=== PATIENT | female | born 1960 | race Caucasian/White ===

== ENCOUNTER 2022-06-10 11:11 | Outpatient (REF) | payer OTHER, SELFPAY ==
--- NOTE | ~2022-06-10 | MM_ITS ---
EXAMINATION: MM SCREENING DIGITAL BREAST TOMOSYNTHESIS, BILATERAL CLINICAL INFORMATION: Screening. Asymptomatic. The lifetime risk of breast cancer based on the Tyrer-Cuzick Model is 8.5%. COMPARISON: Mammography: December 21, 2017 and studies dating back to November 07, 2012 TECHNIQUE: Digital breast tomosynthesis is performed in both the craniocaudal and mediolateral oblique views along with computer-aided detection (CAD). Synthesized 2D images are generated from the tomosynthesis. FINDINGS: There are scattered areas of fibroglandular density (ACR BI-RADS breast composition Category b). There are no significant masses, abnormal calcifications, or other abnormalities. MM/MM tomosynthesis screening BI IMPRESSION: There are no significant changes from prior study. ASSESSMENT: BI-RADS 1: Negative RECOMMENDATION: Routine annual mammography screening. This patient's information was entered into a reminder system with a target due date for their next mammogram.
== END 2022-06-10 11:12 | disposition home or self-care (01) ==
LOC: HO.MAMMO 11:11
PROVIDERS: Visit Provider Internal Medicine Geriatric Medicine
DX: Z12.31 Encounter for screening mammogram for malignant neoplasm of breast (principal)
CPT/HCPCS: 77063; 77067

== ENCOUNTER 2024-03-03 10:41 | Outpatient (REF) | payer OTHER, SELFPAY ==
[2024-03-03 14:21] LABS: Alanine Aminotransferase 14 U/L (0-31); Albumin Level 4.1 g/dL (3.5-5.0); Alkaline Phosphatase 86 U/L (39-117); Anion Gap 11 (12-20); Aspartate Amino Transferase 13 U/L (5-31); Bilirubin Direct 0.2 mg/dL (0.0-0.5); Bilirubin Total 0.3 mg/dL (0.0-1.0); Blood Urea Nitrogen 19 mg/dL (9-16); Calcium 9.8 mg/dL (8.4-10.2); Carbon Dioxide 29 mmol/L (22-29); Chloride 106 mmol/L (96-108); Cholesterol 138 mg/dL (<200); Estimated Glomerular Filt Rate > 60; Glucose Random 114 mg/dL (60-115); HDL Cholesterol 54 mg/dL (>40); LDL Cholesterol Calculated 70 mg/dL (<100); Potassium 4.4 mmol/L (3.3-5.1); Sodium 142 mmol/L (135-145); Total Protein 7.9 g/dL (6.5-8.0); Triglycerides 71 mg/dL (<150)
[2024-03-03 14:40] LABS: Creatinine Urine 170.28 mg/dL; Microalbum/Creatinine Ratio Ur 21.7 ug/mg cr (<30)
== END 2024-03-03 10:42 | disposition home or self-care (01) ==
LOC: HO.HHCL 10:41
PROVIDERS: Visit Provider Internal Medicine Geriatric Medicine
DX: E11.9 Type 2 diabetes mellitus without complications (principal); Z79.4 Long term (current) use of insulin
CPT/HCPCS: 36415; 80048; 80061; 80076; 82043; 82570

== ENCOUNTER 2024-04-04 10:09 | Outpatient (REF) | payer OTHER, SELFPAY | END 2024-04-04 10:10 | disposition home or self-care (01) | LOC: HO.MAMMO 10:09 | PROVIDERS: PCP Internal Medicine Geriatric Medicine; Visit Provider Internal Medicine Geriatric Medicine | DX: Z12.31 Encounter for screening mammogram for malignant neoplasm of breast (principal) | CPT/HCPCS: 77063; 77067 ==

== ENCOUNTER → 2024-04-04 10:15 | Outpatient (BNV) | payer OTHER, SELFPAY | PROVIDERS: PCP Internal Medicine Geriatric Medicine; Visit Provider Radiology Diagnostic Radiology | DX: Z12.31 Encounter for screening mammogram for malignant neoplasm of breast (principal) | CPT/HCPCS: 77063; 77067 ==

== ENCOUNTER 2024-07-26 17:26 | Outpatient (REF) | payer OTHER, SELFPAY ==
[2024-07-28 16:58] LABS: HPV mRNA E6/E7 Not Detected (Not Detected)
== END 2024-07-26 17:27 | disposition home or self-care (01) ==
LOC: HO.HHCLNP 17:26
PROVIDERS: Visit Provider Advanced Practice Midwife
DX: Z12.4 Encounter for screening for malignant neoplasm of cervix (principal)
CPT/HCPCS: 36415; 87624; 88175

== ENCOUNTER 2024-08-17 14:18 | Outpatient (REF) | payer OTHER, SELFPAY ==
--- NOTE | ~2024-08-17 | US_ITS ---
EXAMINATION: US PELVIS CLINICAL INFORMATION: Right lower quadrant pain. Postmenopausal. COMPARISON: None available. TECHNIQUE: Ultrasound of the pelvis is performed using both transabdominal and transvaginal transducers along with Doppler. Transvaginal imaging is performed due to inadequate visualization transabdominally. FINDINGS: Uterus: The uterus is anteverted and anteflexed and measures 5.4 x 2.4 x 4 cm. The double wall endometrial thickness is 3 mm. The uterus is smooth in contour and has normal myometrial echogenicity. No visible fibroid. Adnexa: Neither the right of the left ovary is visualized. No adnexal abnormality. Cul-de-sac: No fluid in cul-de-sac. US/US pelvic and transvaginal IMPRESSION: Normal ultrasound of pelvis. Electronically signed by: Poncho Ellis MD 08/17/2024 04:56 PM EDT
== END 2024-08-17 14:19 | disposition home or self-care (01) ==
LOC: HO.US 14:18
PROVIDERS: PCP Internal Medicine Geriatric Medicine; Visit Provider Advanced Practice Midwife
DX: R10.31 Right lower quadrant pain (principal)
CPT/HCPCS: 76830; 76856

== ENCOUNTER 2025-08-03 08:31 | Outpatient (REF) | payer OTHER, SELFPAY ==
--- OUTSIDE RECORDS SUMMARY | 2025-08-01 11:00 | XMS_ITS | Encounter Summary ---
Author Organization [employer] Address [address] [place] [address] Care Team Providers Care Bridge Crane Operator Name Role Phone Name, Zeb JOSHUA Primary Care Provider [phone] Jenna Webber PharmD Unavailable [phone] Reason for Referral * Imaging (Routine) - Authorized Specialty Diagnoses / Procedures Referred By Contac t Referred To Contact Radiology Diagnoses Family history of breast cancer Breast cancer screening by mammogram Procedures BI Mammogram Screening Tomosynthesis Bilateral Katt Donis CNM [address] [place] [address] Phone: tel: fax: [address] Phone: tel: fax: Referral ID Status Reason Start Date Expiration Date V isits Requested Visits Authorized [id number] Authorized 08/01/2025 08/01/2026 1 1 * Imaging (Routine) - Authorized Specialty Diagnoses / Procedures Referred By Contac t Referred To Contact Radiology Diagnoses Menopausal and postmenopausal disorder Procedures BD DEXA Axial Katt Donis CNM [address] [place] [address] Phone: tel: fax: [address] Phone: tel: fax: Referral ID Status Reason Start Date Expiration Date V isits Requested Visits Authorized [id number] Authorized 08/01/2025 08/01/2026 1 1 Encounter Details Date Type Department Care Team (Latest Contact Info) Description 08/01/2025 11:00 AM EDT Procedure Visit [facility] [address] [place] [address] Katt Donis CNM [address], [place] [id number] Menopausal and postmenopausal disorder (Primary Dx); Visit for pelvic exam; Family history of breast cancer; Breast cancer screening by mammogram Social History Tobacco Use Types Packs/Day Years Used Date Smoking Tobacco: Never Smokeless Tobacco: Never Alcohol Use Standard Drinks/Week Comments Never 0 (1 standard drink = 0.6 oz pur e alcohol) Depression Answer Date Recorded Patient Health Questionnaire-9 Score 4 06/06/2025 Patient Health Questionnaire-9 Score 4 06/06/2025 Last PHQ-9: Questionnaire Data Not on file 0 06/06/2025 Housing Stability Answer Date Recorded What is your housing situation today? I have fariha sebastian 06/06/[address] you li ve. Do you have problems with any of the following? None of the above 06/06/2025 Food Insecurity Answer Date Recorded Within the past 12 months, y ou worried that your food would run out before you got money to buy more: Sometimes True 2024 Within the past 12 months,th e food you bought just didn't last and you didn't have enough money to get more: Sometimes True 06/06/2025 Transportation Answer Date Recorded In the past 12 months, has l ack of transportation kept you from medical appts, meetings, work or from getting things needed for daily living? No 06/06/2025 Utilities Answer Date Recorded In the past 12 months, has t he electric, gas, oil or water company threatened to shut off services in your home? Yes 06/06/2025 Depression Answer Date Recorded Patient Health Questionnaire-2 Score 1 06/06/2025 Internet Access Answer Date Recorded Internet Access Q1 Yes 06/06/2025 Internet Access Q2 Not on file 06/06/2025 Comments No Sex and Gender Information Value Date Recorded Sex Assigned at Female 09/21/2022 10:17 AM EDT Legal Sex Female 10:17 AM EDT Gender Identity Female 09/21/2022 10:17 AM EDT Sexual Orientation Choose not to disclose 2021 10:17 AM EDT documented as of this encounter Last Filed Vital Signs Vital Sign Reading Time Taken Comments Blood Pressure 110/64 08/01/2025 10:56 AM EDT Pulse 108 08/01/2025 10:56 AM EDT Temperature 36.1 C (97 F) 08/01/2025 10:56 AM EDT Respiratory Rate 20 08/01/2025 10:56 AM EDT Oxygen Saturation - - Inhaled Oxygen Concentration - - Weight 58.7 kg (129 lb 6 oz) 08/01/2025 10:56 AM EDT Height 162.6 cm (5' 4 ) 08/01/2025 10:56 AM EDT Body Mass Index 22.21 08/01/2025 10:56 AM EDT documented in this encounter Progress Notes * Katt Donis, NICK - 08/01/2025 11:00 AM EDT Subjective Patient ID: Triny Monsivais is a 65 y.o. female who presents for [facility] visit. Here with daughter and great grand-daughter who remained for intake, but left for exam with Ivisolena. Pap NIL/HPV neg 07/2024. Pap NIL/HPV neg 07/2019. Mammogram BIRADS 1, cat a 03/2024. Not sexually active at last visit with me, no current partner. Lives with daughter, feels safe at home (confirmed this with daughter not present). No personal fracture, no parental hip fracture. Menopausal around 47, no bleeding since. No vaginal/urinary symptoms. Not using vaginal estrogen, feels well without it. No worrisome findings on pelvic ultrasound 07/2024, ovaries not seen. Due for BMD. Would like breast and pelvic exam today. Review of Systems Genitourinary: Negative for dyspareunia, dysuria, frequency, genital sores, hematuria, menstrual problem, pelvic pain, urgency, vaginal bleeding, vaginal discharge and vaginal pain. No abnormal pap, no abnormal bleeding, no breast pain, no breast mass, no nipple discharge Objective BP 110/64 (BP Location: Left arm, Patient Position: Sitting, BP Cuff Size: Adult) Pulse 108 Temp 97 ??F (36.1 ??C) (Oral) Resp 20 Ht 5' 4 (1.626 m) Wt 129 lb 6 oz (58.7 kg) BMI 22.21 kg/m?? 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 Constitutional: Appearance: Normal appearance. Chest: Breasts: Right: Normal. No swelling, bleeding, inverted nipple, mass, nipple discharge, skin change or tenderness. Left: Normal. No swelling, bleeding, inverted nipple, mass, nipple discharge, skin change or tenderness. Genitourinary: General: Normal vulva. Labia: Right: No rash, tenderness, lesion or injury. Left: No rash, tenderness, lesion or injury. Vagina: Normal. No signs of injury and foreign body. No vaginal discharge, erythema, tenderness, bleeding or lesions. Cervix: No cervical motion tenderness, discharge, friability, lesion, erythema, cervical bleeding or eversion. Uterus: Normal. Not enlarged and not tender. Adnexa: Right adnexa normal and left adnexa normal. Right: No mass, tenderness or fullness. Left: No mass, tenderness or fullness. Comments: Ovaries non palpable bilaterally. Poor tone with Kegels, no prolapse with Valsalva Lymphadenopathy: Upper Body: Right upper body: No supraclavicular or axillary adenopathy. Left upper body: No supraclavicular or axillary adenopathy. Neurological: Mental Status: She is alert. Psychiatric: Mood and Affect: Mood normal. Behavior: Behavior normal. Assessment/Plan Diagnoses and all orders for this visit: Menopausal and postmenopausal disorder - BD DEXA Axial; Future Mammogram and BMD ordered. Visit for pelvic exam Pap/HPV 07/2029. May discuss discontinuing screening if normal/HPV neg. Report bleeding. Report fractures. Mammogram and BMD ordered. Family history of breast cancer - BI Mammogram Screening Tomosynthesis Bilateral; Future Sister diagnosed at 45, still living. Urged to talk with her to see if genetic testing done. Let meor PCP know what she finds out and we can refer Triny for genetics if indicated. Mammogram ordered. Breast cancer screening by mammogram - BI Mammogram Screening Tomosynthesis Bilateral; Future documented in this encounter Plan of Treatment Upcoming Encounters Date Type Department Care Team (Late st Contact Info) Description 08/20/2025 10:15 AM EDT Office Visit [facility] [address] [place] [address] Name, MD Zeb [address] [place] [address] 08/30/2025 11:00 AM EDT Medication Management [facility] [address] [place] [address] Jenna Webber PharmD [address] [place] [address] 01/10/2026 1:00 PM EST Office Visit [facility] [address] [place] [address] Doyle, Rebekah, OD [address] [place] [address] Scheduled Orders Name Type Priority Associated Diagnoses Orde r Schedule BD DEXA Axial Imaging Routine Menopausal and postmenopausal disorder Expected: 08/01/2025, Expires: 08/01/2026 BI Mammogram Screening Tomosynthesis Bilateral Imaging Routine Family history of breast cancer Breast cancer screening by mammogram Expected: 08/01/2025, Expires: 10/01/2026 documented as of this encounter Goals Goal Patient Goal Type Associated Problems Recent Progress Patient-Stated? Author Hemoglobin A1c < 7 Result Component 8.7( 10:46 AM EDT) No PuiaNnamdiJenna, PharmD Record your blood sugar as directed Result Component No Nnamdi Webberyssa, PharmD Note: Use CGM, ensuring sensor is scanned at least once every 8 hours to capture 24H data. Check BG manually, as directed. documented as of this encounter Visit Diagnoses Diagnosis Menopausal and postmenopausal disorder- Primary Unspecified menopausal and postmenopausal disorder Visit for pelvic exam Family history of breast cancer Family history of malignant neoplasm of breast Breast cancer screening by mammogram documented in this encounter Additional Health Concerns Assessment Noted Time PHQ-9 Depression Total Score: 4 06/06/20 25 11:34 AM EDT documented as of this encounter Care Teams Bridge Crane Operator Relationship Specialty Start Date End Date Name, MD Zeb [address] [place] [address] PCP - General Family Medicine 02/12/16 Jenna Webber PharmD [address] [place] [address] Pharmacist Internal Medicine 01/22/23 documented as of this encounter
--- OUTSIDE RECORDS SUMMARY | 2025-08-03 09:02 | XMS_ITS | Clinical Summary ---
Author Organization [employer] Address [address] [place] [address] Care Team Providers Care Envelope Patternmaker Name Role Phone Name, Zeb JOSHUA Primary Care Provider [phone] Jenna Webber PharmD Unavailable [phone] Allergies Active Allergy Reactions Criticality Noted Date Comments Bacitracin Hives 11/10/2022 Naproxen Itching 07/10/2010 The patient has used motrin in the past with no side effects Nitrofurantoin Rash Low 06/25/2021 Penicillins Hives 11/10/2022 Medications * This document contains information received from the source organization and may not represent a complete record from that organization. PARoxetine (Paxil) 40 MG tablet Take 1 tablet by mouth in the morning. Active albuterol 108 (90 Base) MCG/ACT inhaler Inhale 2 puffs every 4 (four) hours if needed. 12/07/19 18 Active risperiDONE (RisperDAL) 1 MG tablet Take 1.5 mg by mouth 2 times daily. 09/03/20 22 Active zolpidem (Ambien) 10 MG tablet Take 10 mg by mouth at bedtime. 10/09/20 22 Active LORazepam (Ativan) 0.5 MG tablet Take 1 tablet by mouth every morning & 2 tablets every evening 01/07/20 23 Active glucagon (Baqsimi Two Pack) 3 MG/DOSE nasal powderIndicatio ns:Type 2 diabetes mellitus without complication, with long-term current use of insulin ([facility]) USE 1 SPRAY (3MG) IN ONE NOSTRIL FOR A PATIENT WITH SEVERE HYPOGLYCEMIA WHO IS NOT RESPONSIVE AND UNABLE SELF-TREAT WITH GLUCOSE. AFTERWARDS TURN ON SIDE. MAY REPEAT IN 15MINUTES IF PATIENT DOES NOT RESPOND. 2 each 1 09/01/20 24 Active PARoxetine (Paxil) 10 MG tablet Take 10 mg by mouth in the morning. Take in addition to 40 mg tab (TDD = 50 MG) 10/31/20 24 Active atorvastatin (Lipitor) 20 MG tabletIndicatio ns:High cholesterol Take 1 tablet (20 mg) by mouth in the morning. 90 tablet 3 01/31/20 25 Active glucose 4 g chewable tabletIndicatio ns:Type 2 diabetes mellitus without complication, with long-term current use of insulin (CMS/[facility]) Chew 4 tablets (16 g) if needed for low blood sugar. (BG < 70 MG/DL). Recheck BG after 15 mins and repeat treatment PRN. 20 tablet 5 01/31/20 25 026 Active insulin pen needle (BD Pen Needle Elvia 2nd Gen) 32G x 4 mm miscIndications :Type 2 diabetes mellitus without complication, with long-term current use of insulin (CMS/[facility]) Use to inject insulin 1 time daily. 100 each 01/31/20 25 Active metFORMIN (Glucophage) 1000 MG tablet Take 1 tablet (1,000 mg) by mouth with breakfast and with evening meal. 180 tablet 3 01/31/20 25 Active OneTouch Delica Lancets 33G miscIndications :Type 2 diabetes mellitus without complication, with long-term current use of insulin (CMS/HCC) USE TO TEST BLOOD SUGAR TWICE A DAY 100 each 01/31/20 25 Active acetaminophen (Tylenol) 325 MG tablet Take 325 mg by mouth every 8 (eight) hours if needed for moderate pain or fever. 02/14/20 25 Active Continuous Glucose Enterprise Data [employer] (FreeStyle Amanda 3 Dyer) deviceIndicatio ns:Type 2 diabetes mellitus with hyperglycemia, unspecified whether roasterman insulin use (CMS/HCC) 1 each Once per day. Use as directed for CGM 1 each 04/06/20 25 Active Continuous Glucose Sensor (FreeStyle Amanda 3 Plus Sensor) miscIndications :Type 2 diabetes mellitus with hyperglycemia, unspecified whether roasterman insulin use (CMS/HCC) Apply 1 every 15 days as directed for CGM 2 each 04/06/20 25 Active glucose blood (FreeStyle Precision Sha Test) test stripIndication s:Type 2 diabetes mellitus with hyperglycemia, unspecified whether roasterman insulin use (CMS/HCC) USE TO TEST BLOOD SUGAR TWICE DAILY 50 strip 04/06/20 25 Active ibuprofen 400 MG tablet Take 1 tablet (400 mg) by mouth every 6 (six) hours if needed for moderate pain. 30 tablet 1 06/07/20 25 026 Active insulin glargine (Toujeo SoloStar) 300 UNIT/ML injectionIndica tions:Type 2 diabetes mellitus without complication, with long-term current use of insulin (CMS/[facility]) Inject 32 Units under the skin at bedtime. 4.5 mL 5 06/08/20 25 Active Dulaglutide (Trulicity) 1.5 MG/0.5ML solution auto-injectorIn dications:Type 2 diabetes mellitus without complication, with long-term current use of insulin (CMS/[facility]) Inject 1.5 mg under the skin 1 (one) time per week. 2 mL 08/02/20 25 Active Semaglutide,0.2 5 or 0.5MG/DOS, (Ozempic, 0.25 or 0.5 MG/DOSE,) 2 MG/3ML solution pen-injectorInd ications:Type 2 diabetes mellitus with hyperglycemia, unspecified whether roasterman insulin use (CMS/[facility]) Inject 0.5 mg under the skin 1 (one) time per week. 3 mL 01/31/20 25 025 Discontin ued(Alter abdoulaye therapy) azithromycin (Zithromax) 250 MG tablet Take 2 tablets PO today then 1 tablet PO daily x 4 days 6 tablet 06/07/20 025 Discontin ued(Thera py completed ) Active Problems Problem Noted Date Diagnosed Date Urinary incontinence 05/20/2022 Asthma 06/23/2016 Type 2 diabetes mellitus wit hout complication, with long-term current use of insulin 02/12/2016 Assessment & Plan (06/06/2025 1:32 PM EDT): -patient declines hypoglycemic events in past 2 weeks -A1c 8.7% in clinic today which is improved from 9.6% in March -patient is scheduled with [facility] Pharmacist Jenna on 06/08 @10: 30 am. Will defer insulin titration for now given that patient has not experienced labile readings since returning to [facility]. She is encouraged to keep that appointment -reviewed symptoms of hyper/hypoglycemia and advised to report Knee pain 02/12/2016 Schizophrenia 02/12/2016 Resolved Problems Problem Noted Date Diagnosed Date Resolved Date Acute bacterial sinusitis 03/06/2025 Assessment & Plan (03/06/2025 10:27 AM EDT): Likely from recent flu infection Pt with penicillin allergy -rx azithromycin -supportive care -ER precautions discussed. -seek medical attention for worsening symptoms. Influenza B 02/13/2025 06/07/2025 Assessment & Plan (02/13/2025 9:24 AM EDT): Influenza B positive. Strep and COVID negative. No evidence of respiratory distress. Symptoms mild. No evidence of dehydration. -On the border of the window of treatment for Tamiflu, will prescribe given ot has upcoming surgery and sick contacts. -Encouraged wearing masks around the house. -Start oseltamivir (Tamiflu) 75 MG, take 1 capsule (75 mg) by mouth 2 times daily for 5 days. -Supportive care advised. -Isolation recommendations discussed. Encounters Date Type Department Care Team Description 08/02/2025 Travel 08/01/2025 11:00 AM EDT Procedure Visit [facility] [address] [place] [address] Katt Donis CNM Menopausal and postmenopausal disorder (Primary Dx); Visit for pelvic exam; Family history of breast cancer; Breast cancer screening by mammogram 08/01/2025 Travel 07/31/2025 Telephone [facility] [address] [place], [place] [phone] Katt Donis CNM CHART PREP 07/25/2025 Telephone [facility] [address] [place], [place] [phone] Name, MD Zeb Durable Medical Equipment 07/09/2025 1:00 PM EDT Office Visit [facility] [address] [place], [place] [phone] Doyle, Rebekah, OD Diabetes type 2, no ocular involvement (CMS/HCC) (Primary Dx); Adult vitelliform macular dystrophy; Lattice degeneration of peripheral retina, left; Pseudophakia of both eyes; Presbyopia of both eyes 07/09/2025 Travel 06/08/2025 Travel 06/07/2025 1:20 PM EDT Office Visit [facility] [address] [place] [phone] Monica Barba DO Strep throat 06/07/2025 Travel 06/06/2025 10:30 AM EDT Office Visit [address] [address] Veronica Haro NP History of elevated blood pressure while in hospital (Primary Dx); Type 2 diabetes mellitus without complication, with long-term current use of insulin ([facility]) 06/06/2025 Travel 06/04/[address] [address] Siena Schulte MA CHARTPREP 06/01/[address] [address] Erich Crain MA chart prep 06/01/[address] [address] Vahid, MD Zeb appt R/S Office visit/ER F/U 05/31/[address] [phone] Tricia Stern FNP Chart Prep 05/23/[address] [address] Jenna Webber, PharmD 05/09/2025 Travel from Last 3 Months Immunizations Immunization Administration Dates Next Due Influenza injectable quadriv alent IIV4 with preservative 08/08/2019,08/19/2018,09/07/2017 Influenza, IIV3, injectable 08/16/2015,0 08/11/2013,10/28/2012,10/24,10/29/2008 Novel [id number], preservative-free 02/18/2010 Pneumococcal Conjugate PCV 20 02/24/2023 Pneumococcal Polysaccharide PPSV23 02/14/2013 RSV Bivalent 11/19/2023 Tdap 02/24/2023,02/14/2013 Zoster, Recombinant 11/19/2023,02/24/2023 Family History Medical History Relation Name Comments Colon cancer Brother Colon cancer Mother Breast cancer Sister Relation Name Status Comments Brother Mother Sister Social History Tobacco Use Types Packs/Day Years Used Date Smoking Tobacco: Never Smokeless Tobacco: Never Tobacco Cessation:Counseling Given: Not Answered Alcohol Use Standard Drinks/Week Comments Never 0 (1 standard drink = 0.6 oz pur e alcohol) Depression Answer Date Recorded Patient Health Questionnaire-9 Score 4 06/06/2025 Patient Health Questionnaire-9 Score 4 06/06/2025 Last PHQ-9: Questionnaire Data Not on file 0 06/06/2025 Housing Stability Answer Date Recorded What is your housing situation today? I have fariha romulo 06/06/[address] you li [...] not to disclose 2021 10:17 AM EDT Last Filed Vital Signs Vital Sign Reading Time Taken Comments Blood Pressure 110/62 08/02/2025 12:17 PM EDT Pulse 108 08/01/2025 10:56 AM EDT Temperature 36.1 C (97 F) 08/01/2025 10:56 AM EDT Respiratory Rate 20 08/01/2025 10:56 AM EDT Oxygen Saturation 97% 06/07/2025 12:58 PM EDT Inhaled Oxygen Concentration - - Weight 58.7 kg (129 lb 6 oz) 08/01/2025 10:56 AM EDT Height 162.6 cm (5' 4 ) 08/01/2025 10:56 AM EDT Body Mass Index 22.21 08/01/2025 10:56 AM EDT Plan of Treatment Upcoming Encounters Date Type Department Care Team (Late st Contact Info) Description 08/20/2025 10:15 AM EDT Office Visit [facility] [address] [place] [address] Name, MD Zeb [address] [place] [address] 08/30/2025 11:00 AM EDT Medication Management [facility] [address] [place] [address] Puia, Jenna, PharmD [address] [place] [address] 01/10/2026 1:00 PM EST Office Visit [facility] [address] [place] [address] Doyle, Rebekah, OD [address] [place] [address] Health Maintenance Due Date Last Done Comments CT Colonography 1960 FIT DNA/Cologuard 1960 FIT 1960 FOBT 1960 Sigmoidoscopy 1960 Hepatitis C Screening 01/25/1978 Diabetes: Urine Protein Screening 03/03/2025 03/03/2024, 10/07/2022, 04/07/2021 Lipid Panel 03/03/2025 03/03/2024, 09/22, 04/07/2021 Diabetes: Foot Exam 03/17/2025 03/17/2024, 03/17/2024, 03/17/2024 COVID-19 Vaccine (1 - 2024-25 season) 2025 Influenza Vaccine (#1) 2025 9, 08/19/2018, 09/07/2017, Additional history exists Diabetes: Hemoglobin A1C 09/06/2025 025, 04/06/2025, 12/20/2024, Additional history exists Colonoscopy 12/25/2025 12/25/2020, 12/25/2020 Colorectal Cancer Screening 12/25/2025 Mammogram 04/04/2026 04/04/2024, 05/23, 06/10/2022, Additional history exists Depression Screening 06/06/2026 06/06/2025, 06/06/20 SDOH Screening 06/06/2026 06/06/2025 Tobacco Screening 07/31/2026 07/31/2025 Alcohol/Substance Use Screening 08/01/2026 08/01/2025 Eye Exam 07/09/2027 07/09/2025, 06/22, 07/09/2025, Additional history exists Cervical Cancer Screening 07/26/2029 HPV/Cotest 07/26/2029 07/26/2024, 07/26/2019 Pap Smear 07/26/2029 07/26/2024, 07/26/2019 DTaP/Tdap/Td Vaccines (3 - Td or Tdap) 02/24/2033 02/24/2023, 02/14/2013 Pneumococcal Vaccine: 50+ Years Completed 02/24/2023, 02/14/2013 RSV Patients and Patients Aged 60 years or older Completed 11/19/2023 Zoster Vaccines Completed 11/19/2023, 02/24/2023 HIB Vaccines Aged Out No longer eligi ble based on patient's age to complete this topic HPV Vaccines Aged Out No longer eligi ble based on patient's age to complete this topic Hepatitis A Vaccines Aged Out No long er eligible based on patient's age to complete this topic Hepatitis B Vaccines Aged Out No long er eligible based on patient's age to complete this topic IPV Vaccines Aged Out No longer eligi ble based on patient's age to complete this topic Meningococcal B Vaccine Aged Out No l onger eligible based on patient's age to complete this topic Meningococcal Vaccine Aged Out No anthony maikol eligible based on patient's age to complete this topic RSV under 20 months Aged Out No longe r eligible based on patient's age to complete this topic Rotavirus Vaccines Aged Out No longer eligible based on patient's age to complete this topic Goals Goal Patient Goal Type Associated Problems Recent Progress Patient-Stated? Author Hemoglobin A1c < 7 Result Component 8.7( 10:46 AM EDT) No Jenna Webber, PharmNeli Record your blood sugar as directed Result Component No Jenna Webber, PharmD Note: Use CGM, ensuring sensor is scanned at least once every 8 hours to capture 24H data. Check BG manually, as directed. Procedures Procedure Name Priority Date/Time Associated Diagnosis Comments OCT, RETINA - OU - BOTH EYES Routine 07/09/2025 1:00 PM EDT Adult vitelliform macular dystrophy POCT RAPID STREP A Routine 06/07/2025 1: 02 PM EDT Strep throat POCT RAPID COVID ANTIGEN Routine 06/07/2025 1:02 PM EDT Strep throat POCT INFLUENZA A (ID NOW RAPID MOLECULAR) Routine 06/07/2025 1:02 PM EDT Strep throat POCT INFLUENZA B (ID NOW RAPID MOLECULAR) Routine 06/07/2025 1:02 PM EDT Strep throat POCT GLYCATED HEMOGLOBIN, TOTAL Routine 06/06/2025 10:46 AM EDT Type 2 diabetes mellitus without complication, with long-term current use of insulin ([facility]) POCT GLUCOSE Routine 06/06/2025 10:43 AM EDT Type 2 diabetes mellitus without complication, with long-term current use of insulin ([facility]) THINPREP IMAGING PAP AND HPV MRNA E6/E7 Routine 07/26/2024 11:48 AM EDT BI MAMMOGRAM SCREENING TOMOSYNTHESIS BILATERAL Routine 04/04/2024 10:33 AM EDT ALBUMIN, RANDOM URINE W/CREATININE Routine 03/03/2024 11:57 AM EDT LIPID PANEL, STANDARD Routine 03/03/2024 10:44 AM EDT HM COLONOSCOPY Routine 12/25/2020 from Last 3 Months or Most Recently Relevant to Health Maintenance Results * OCT, Retina - OU - Both Eyes (07/09/2025 1:00 PM EDT) Rebekah Tillye, OD - 08/01/2025 12:16 PM EDT Images from the original result were not included. Right Eye Quality was good. Left Eye Quality was good. Notes OCT MACULA INTERPRETATION Optical Coherence Tomography Interpretation Report Measurements: OD OS Macula Thickness 140 microns 184 microns Test findings: OD: Thinned foveal contour, no cystoid macular edema, subfoveal atrophy, no subretinal fluid (SRF) OS: Thinned foveal contour, no cystoid macular edema, subfoveal atrophy, no subretinal fluid (SRF) Impression and Plan: Likely collapsed vitelliform lesions centrally in both eyes. Findings are stable to 12/2023. Will monitor here in 6 months, sooner with any changes in vision. Rebekah Kwon OD OPHTH TOMOGRAPHY Final Result * Influenza B (ID NOW Rapid Molecular) (06/07/2025 1:02 PM EDT) Influenza B Negative Negative, Indeterminate [facility] Swab 06/07/2025 1:02 PM EDT Monica Barba DO POINT OF CARE TEST ENTER/CARRIE T ORDERABLES Final Result [facility] [address] [place] [phone] * Influenza A (ID NOW Rapid Molecular) (06/07/2025 1:02 PM EDT) Influenza A Negative Negative, Indeterminate [facility] Swab 06/07/2025 1:02 PM EDT Monica Barba DO POINT OF CARE TEST ENTER/CARRIE T ORDERABLES Final Result [facility] [address] [place] [phone] * POCT Rapid COVID Ag (06/07/2025 1:02 PM EDT) [facility] Rapid COVID Ag Negative Swab 06/07/2025 1:02 PM EDT Monica Barba DO POINT OF CARE TEST ENTER/CARRIE T ORDERABLES Final Result * (ABNORMAL) POCT rapid strep A manually resulted (06/07/2025 1:02 PM EDT) [facility] Rapid Strep A Screen Positive( A) Negative, None Detected Swab 06/07/2025 1:02 PM EDT Monica Jameson DO POINT OF CARE TEST ENTER/CARRIE T ORDERABLES Final Result * (ABNORMAL) POCT HGB A1C (06/06/2025 10:46 AM EDT) [facility] Hemoglobin A1C 8.7(A) 4.0 - 5.7 % QC [employer] Lot # [id number] Lot# Expiration Date Blood 06/06/2025 10:4 6 AM EDT Veronica Haro NP POINT OF CARE TEST ENTER/EDIT O RDERABLES Final Result * POCT Glucose (06/06/2025 10:43 AM EDT) [facility] Glucose Blood, POC 180 60 - 200 mg/dL QC [employer] Lot # [id number] Lot# Expiration Date Blood Capillary blood specimen / Unknown 06/06/2025 10:43 AM EDT Veronica Аннаneda SELVIN POINT OF CARE TEST ENTER/EDIT O RDERABLES Final Result * ThinPrep Imaging Pap and HPV mRNA E6/E7 (07/26/2024 11:48 AM EDT) HPV nRNA E6/E7 Not Detected Not Detected [facility] Comment:Methodology: Transcr iption-Mediated AmplificationThis assay detects E6/E7 viral messenger RNA (mRNA) from 14high-risk HPV types (16,18,31,33,35,39,45,51,52,56,58,59,66,68).Cervical sources are required for HPV testing.If a vaginal source from a patient who has had atotal hysterectomy with removal of cervix wassubmitted, please contact the testing laboratoryfor alternative testing options.For additional information, please refer [email or web address]/faq/[email or web address](This link if provided for information/educational purposes only.)THIS TEST WAS PERFORMED AT:[facility] [address] [id number] ANTON MD SOURCE: SEE NOTE [facility] Comment:None given Report Status: [facility] Clinical Information: SEE NOTE [facility] Comment:None given LMP: SEE NOTE [facility] Comment:NONE GIVEN Prev. PAP: SEE NOTE [facility] Comment:NONE GIVEN Prev. BX: SEE NOTE [facility] Comment:NONE GIVEN Statement Of Adequacy: SEE NOTE [facility] Comment:SATISFACTORY FOR BLANCO LUATION General Categorization: [facility] Interpretation/Result: SEE NOTE [facility] Comment:Cytology Results: Ne gative for intraepitheliallesion or malignancy.Atrophic pattern; predominantly parabasal cells Cytology Comment SEE NOTE [facility] Comment:This Pap test has be en evaluated with computerassisted technology. Raw Stock Dyeing Machine Tender: SEE NOTE [facility] Comment:DMM, CT(ASCP)CT scre ening location: [place] [address] Review Raw Stock Dyeing Machine Tender: [facility] Pathologist [facility] PAP Infection [facility] See Note SEE NOTE [facility] Comment:EXPLANATORY NOTE:The Pap is a screening test for cervical cancer. It isnot a diagnostic test and is subject to false negativeand false positive results. It is most reliable when asatisfactory sample, regularly obtained, is submittedwith relevant clinical findings and history, and whenthe Pap result is evaluated along with historic andcurrent clinical information. 07/26/2024 11:4 8 AM EDT 07/26/2024 5:27 PM EDT Narrative [facility] - 08/01/2024 1:18 PM EDT SEE SCANNED RESULTS IN EMR us Katt Donis CNM LAB PATHOLOGY ORDERABLES Final Result [facility] [address] [place] [phone] * BI Mammogram Screening Tomosynthesis Bilateral (04/04/2024 10:33 AM EDT) Anatomical Region Laterality Modality Breast Bilateral Mammography 04/04/2024 10:3 3 AM EDT Narrative 05/05/2024 5:21 AM EDT [address] [place] [address] Mammography Report Signed Patient: Triny Monsivais MR#: [id number] : 1960 Acct:[id number] Age/Sex: 64 / F ADM Date: 04/04/24 Loc: HO.MAMMO Attending Dr: Zeb Redding MD Ordering Physician: Zeb Redding MD Results: 1Negative Date of Service: 04/04/24 Follow Up: 1 Year From Orig inal Mammogram Procedure(s): MM tomosynthesis screening BI Accession Number(s): [id number] cc: Zeb Redding MD EXAMINATION: MM SCREENING DIGITAL BREAST TOMOSYNTHESIS, BILATERAL CLINICAL INFORMATION: Screening. Asymptomatic. COMPARISON: Mammography: This study is compared with prior exams dating back to 2018. TECHNIQUE: Digital breast tomosynthesis is performed in both the craniocaudal and mediolateral oblique views along with computer-aided detection (CAD). Synthesized 2D images are generated from the tomosynthesis. FINDINGS: The breasts are almost entirely fatty (ACR BI-RADS breast composition Category a). There are no significant masses, abnormal calcifications, or other abnormalities. MM/MM tomosynthesis screening BI IMPRESSION: No mammographic evidence of malignancy. ASSESSMENT: BI-RADS BI-RADS 1 - Negative RECOMMENDATION: Routine annual mammography screening. 1 year F/U This examination should not preclude the clinical evaluation of a suspicious palpable abnormality. This patient's information was entered into a reminder system with a target due date for their next mammogram. Dictated By: Agnieszka Ayala MD Signed By: <Electronically signed by Agnieszka Ayala MD in OV> 05/05/24 0516 DD/ 1033 TD/TT: Third Hand: Procedure Note Donotuseinterpreter, Image - 05/05/20[facility] [address] [place], [place] [address] Mammography Report Signed Patient: Triny Monsivais#: [id number] : 1960Acct:[id number] Age/Sex: 64 / FADM Date: 04/04/24 Loc: HO.MAMMO Attending Dr: Zeb Redding MD Ordering Physician: Zeb Redding MDResults: 1Negative Date of Service: 04/04/24Follow Up: 1 Year From [facility] Mammogram Procedure(s): MM tomosynthesis screening BI Accession Number(s): [id number] cc: Zeb Redding MD EXAMINATION: MM SCREENING DIGITAL BREAST TOMOSYNTHESIS, BILATERAL CLINICAL INFORMATION: Screening. Asymptomatic. COMPARISON: Mammography: This study is compared with prior exams dating back to 2018. TECHNIQUE: Digital breast tomosynthesis is performed in both the craniocaudal and mediolateral oblique views along with computer-aided detection (CAD). Synthesized 2D images are generated from the tomosynthesis. FINDINGS: The breasts are almost entirely fatty (ACR BI-RADS breast composition Category a). There are no significant masses, abnormal calcifications, or other abnormalities. MM/MM tomosynthesis screening BI IMPRESSION: No mammographic evidence of malignancy. ASSESSMENT: BI-RADS BI-RADS 1 - Negative RECOMMENDATION: Routine annual mammography screening. 1 year F/U This examination should not preclude the clinical evaluation of a suspicious palpable abnormality. This patient's information was entered into a reminder system with a target due date for their next mammogram. Dictated By: Agnieszka Ayala MD Signed By: <Electronically signed by Agnieszka Ayala MD in OV> 05/05/24 0516 DD/ 1033 TD/TT: Third Hand: Zeb Redding MD IMG BI PROCEDURES Edited Result - Final * Albumin, Random Urine W/Creatinine (03/03/2024 11:57 AM EDT) Creatinine, Urine 170.28 mg/dL [facility] Microalbumin Urine 37.0 mg/L [facility] Microalbum Creatinine Ratio Ur 21.7 <30 ug/mg cr [facility] Comment:Albumin/Creatinine R atio Reference Ranges: Normal: < 30 ug/mg creatinine Microalbuminuria: 30 - 300 ug/mg creatinineClinical Albuminuria: > 300 ug/mg creatinine 03/03/2024 11:5 7 AM EDT 03/03/2024 1:46 PM EDT us Zeb Redding MD LAB URINE ORDERABLES Final Resul t [facility] [address] [place] [phone] * Lipid Panel, Standard (03/03/2024 10:44 AM EDT) Triglycerides 71 <150 mg/dL [facility] Comment:Desirable Triglyceri de: less than 150 mg/dLBorderline High Triglyceride 150-199 mg/dLHigh Triglyceride: 200-499 mg/dLVery High Triglyceride: greater than or equal to 5OO mg/dL Cholesterol 138 <200 mg/dL [facility] Comment:Desirable Cholestero l: less than 200 mg/dLBorderline High Cholesterol: 200-239 mg/dLHigh Cholesterol: greater than 239 mg/dL LDL Cholesterol Calculated 70 <100 mg/dL [facility] Comment:Desirable LDL: less than 100 mg/dLNear Optimal/Above Optimal LDL: 110- 129 mg/dLBorderline High LDL: 130-159 mg/dLHigh LDL: 160-189 mg/dLVery High LDL: greater than or equal to 190 mg/dL HDL Cholesterol 54 >40 mg/dL [facility] Comment:Desirable HDL: great er than 40 mg/dL Note: This HDL assay may give artificially low results in patients with liver disease. 03/03/2024 10:4 4 AM EDT 03/03/2024 1:23 PM EDT Zeb Redding MD LAB BLOOD ORDERABLES Final Resul t [facility] [address] [place] [phone] * (ABNORMAL) Colonoscopy (12/25/2020) Colonoscopy Abnormal( A) Normal Comment:repeat in 5 years Historical Provider HEALTH MAINTENANCE Final Result from Last 3 Months or Most Recently Relevant to Health Maintenance Insurance [address] < 65 [place] [id number] Care Teams Envelope Patternmaker Relationship Specialty Start Date End Date Name, MD Zeb [address] [place] [address] PCP - General Family Medicine 02/12/16 Jenna Webber PharmD [address] [place] [address] Pharmacist Internal Medicine 01/22/23
--- OUTSIDE RECORDS SUMMARY | 2025-08-03 09:02 | XMS_ITS | Encounter Summary ---
Author Organization [employer] Address [address] [facility] 7t [place] [address] Care Team Providers Care Wind Turbine Erector Name Role Phone Name, Zeb JOSHUA Primary Care Provider [phone] Jenna Webber PharmD Unavailable [phone] Reason for Visit * Reason Onset Date Comments callback requested 10/31/2024 Encounter Details Date Type Department Care Team ([facility] st Contact Info) Description 10/31/2024 Telephone [facility] MEDICINE [address] [place], [place] [phone] Name, MD Zeb [address] [place] [address] callback requested Social History Tobacco Use Types Packs/Day Years Used Date Smoking Tobacco: Never Smokeless Tobacco: Never Alcohol Use Standard Drinks/Week Comments Never 0 (1 standard drink = 0.6 oz pur e alcohol) Depression Answer Date Recorded Patient Health Questionnaire-9 Score 0 03/17/2024 Patient Health Questionnaire-9 Score 0 03/17/2024 Last PHQ-9: Questionnaire Data Not on file 0 03/17/2024 Housing Stability Answer Date Recorded What is your housing situation today? I have fariha sebastian 09/09/[address] you li ve. Do you have problems with any of the following? None of the above 09/09/2023 Food Insecurity Answer Date Recorded Within the past 12 months, y ou worried that your food would run out before you got money to buy more: Never True 09/09/2023 Within the past 12 months,th e food you bought just didn't last and you didn't have enough money to get more: Never True Transportation Answer Date Recorded In the past 12 months, has l ack of transportation kept you from medical appts, meetings, work or from getting things needed for daily living? No 09/09/2023 Utilities Answer Date Recorded In the past 12 months, has t he electric, gas, oil or water company threatened to shut off services in your home? I am not sure 09/09/2023 Depression Answer Date Recorded Patient Health Questionnaire-2 Score 0 03/17/2024 Comments No Sex and Gender Information Value Date Recorded Sex Assigned at Female 09/21/2022 10:17 AM EDT Legal Sex Female 10:17 AM EDT Gender Identity Female 09/21/2022 10:17 AM EDT Sexual Orientation Choose not to disclose 2021 10:17 AM EDT documented as of this encounter Miscellaneous Notes * Telephone Encounter - Mary Carmen Mccauley - 10/31/2024 10:44 AM EST Tc from daughter requesting a callback as she has multiple questions on DME and other questions to ask to PCP or [place]. Callback number [phone] documented in this encounter Plan of Treatment Upcoming Encounters Date Type Department Care Team (Late st Contact Info) Description 08/20/2025 10:15 AM EDT Office Visit [facility] MED[facility] [address] [place] [address] Name, MD Zeb [address] [place] [address] 08/30/2025 11:00 AM EDT Medication Management [facility] [address] [place] [address] PuiaJenna, PharmD [address] [place] [address] 01/10/2026 1:00 PM EST Office Visit [facility] OPTOMETRY [address] [place] [address] Rebekah Kwon, OD [address] [place] [address] documented as of this encounter Goals Goal Patient Goal Type Associated Problems Recent Progress Patient-Stated? Author Hemoglobin A1c < 7 Result Component 8.7( 5 10:46 AM EDT) No Jenna Webber PharmD Record your blood sugar as directed Result Component No Jenna Webber PharmD Note: Use CGM, ensuring sensor is scanned at least once every 8 hours to capture 24H data. Check BG manually, as directed. documented as of this encounter Visit Diagnoses Not on filedocumented in this encounter Additional Health Concerns Assessment Noted Time PHQ-9 Depression Total Score: 0 03/17/20 24 10:39 AM EDT documented as of this encounter Care Teams Wind Turbine Erector Relationship Specialty Start Date End Date Name, MD Zeb [address] [place] [address] PCP - General Family Medicine 02/12/16 Jenna Webber PharmD [address] [place] [address] Pharmacist Internal Medicine 01/22/23 documented as of this encounter
--- OUTSIDE RECORDS SUMMARY | 2025-08-03 09:02 | XMS_ITS | Encounter Summary ---
Author Organization [employer] Address [address] [facility] 7t [place] [address] Care Team Providers Care Occupational Health Manager Name Role Phone Name, Zeb JOSHUA Primary Care Provider [phone] Jenna Webber PharmD Unavailable [phone] Encounter Details Date Type Department Care Team (Latest Contact Info) Description 08/02/2025 Travel Social History Tobacco Use Types Packs/Day Years [...] AM EDT documented as of this encounter Plan of Treatment Upcoming Encounters Date Type Department Care Team (Late st Contact Info) Description 08/20/2025 10:15 AM EDT Office Visit [facility] MED[facility]INE [address] [place] [address] Name, MD Zeb [address] [place] [address] 08/30/2025 11:00 AM EDT Medication Management [facility] [address] [place] [address] Puia, Jenna, PharmD [address] [place] [address] 01/10/2026 1:00 PM EST Office Visit [facility] OPTOMETRY [address] [place] [address] Doyle, Rebekah, OD [address] [place] [address] documented as of this encounter Goals Goal Patient Goal Type Associated Problems Recent Progress Patient-Stated? Author Hemoglobin A1c < 7 Result Component 8.7( 10:46 AM EDT) No Puia, Jenna, PharmD Record your blood sugar as directed Result Component No Puia, Jenna, PharmD Note: Use CGM, ensuring sensor is scanned at least once every 8 hours to capture 24H data. Check BG manually, as directed. documented as of this encounter Visit Diagnoses Not on filedocumented in this encounter Additional Health Concerns Assessment Noted Time PHQ-9 Depression Total Score: 4 06/06/20 25 11:34 AM EDT documented as of this encounter Care Teams Occupational Health Manager Relationship Specialty Start Date End Date Name, MD Zeb [address] [place] [address] PCP - General Family Medicine 02/12/16 Jenna Webber PharmD [address] [place] [address] Pharmacist Internal Medicine 01/22/23 documented as of this encounter
--- OUTSIDE RECORDS SUMMARY | 2025-08-03 09:02 | XMS_ITS | Encounter Summary ---
Author Organization [employer] Address [address] [facility] 7t [place] [address] Care Team Providers Care Oracle Adf Consultant Name Role Phone Name, Zeb JOSHUA Primary Care Provider [phone] Jenna Webber PharmD Unavailable [phone] Reason for Visit * Reason Onset Date Comments CHART PREP 07/31/2025 Encounter Details Date Type Department Care Team ([facility] st Contact Info) Description 07/31/2025 Telephone [facility]INE [address] [place], [place] [phone] Katt Donis CNM [address] [place] [address] CHART PREP Social History Tobacco Use Types Packs/Day Years [...] encounter Miscellaneous Notes * Telephone Encounter - Josep Sanchez MA - 07/31/2025 6:59 PM EDT Chart Prep Labs: not applicable Images: not applicable Referrals: not applicable Vaccines due: Flu Screenings: eye exam and foot exam Overdue care gaps: SBIRT. Please remind pt appt with PCP. documented in this encounter Plan of Treatment Upcoming Encounters Date Type Department Care Team ([facility] st Contact Info) Description 08/20/2025 10:15 AM EDT Office Visit [facility] MED[facility]INE [address] [place] [address] Name, MD Zeb [address] [place] [address] 08/30/2025 11:00 AM EDT Medication Management [facility] [address] [place] [address] Jenna Webber, Herman [address] [place] [address] 01/10/2026 1:00 PM EST Office Visit [facility] OPTOMETRY [address] [place] [address] Rebekah Kwon, OD 230 [place] [address] documented as of this encounter Goals Goal Patient Goal Type Associated Problems Recent Progress Patient-Stated? Author Hemoglobin A1c < 7 Result Component 8.7( 5 10:46 AM EDT) No Jenna Webber, PharmD Record your blood sugar as directed [...] documented as of this encounter Care Teams Oracle Adf Consultant Relationship Specialty Start Date End Date Name, MD Zeb [address] [place] [address] PCP - General Family Medicine 02/12/16 Jenna Webber PharmD [address] [place] [address] Pharmacist Internal Medicine 01/22/23 documented as of this encounter
--- OUTSIDE RECORDS SUMMARY | 2025-08-03 09:02 | XMS_ITS | Encounter Summary ---
Author Organization [employer] Address [address] [facility] 7t [place] [address] Care Team Providers Care Print Designer Name Role Phone Name, Zeb JOSHUA Primary Care Provider [phone] Jenna Webber PharmD Unavailable [phone] Reason for Visit * Reason Onset Date Comments Med Refill 02/11/2024 Encounter Details Date Type Department Care Team (Late st Contact Info) Description 02/11/2024 Telephone [facility] MEDICINE [address] [place], [place] [phone] Name, MD Zeb [address] [place] [address] Med Refill Social History Tobacco Use Types Packs/Day Years Used Date Smoking Tobacco: Never Smokeless Tobacco: Never Alcohol Use Standard Drinks/Week Comments Never 0 (1 standard drink = 0.6 oz pur e alcohol) Housing Stability Answer Date Recorded What is [...] Date Recorded Patient Health Questionnaire-2 Score 0 03/01/2023 Comments Unknown Sex and Gender Information Value Date Recorded Sex Assigned at Female 09/21/2022 10:17 AM EDT Legal Sex Female 10:17 AM EDT Gender Identity Female 09/21/2022 10:17 AM EDT Sexual Orientation Choose not to disclose 2021 10:17 AM EDT documented as of this encounter Miscellaneous Notes * Telephone Encounter - Monica Leon LPN - 02/11/2024 1:52 PM EDT Medication was sent to [facility] #[id number] on 12/30/23 #90 with 1 refill. * Telephone Encounter - Terence He - 02/11/2024 1:41 PM EDT TC from pt requesting medication refill. Medications needing refill : atorvastatin (Lipitor) 20 MG tablet To be sent to: [facility] #[id number] - [address] [facility] [facility] Patients daughter states is going to leave [facility] on 02/13 documented in this encounter Plan of Treatment Upcoming Encounters Date Type Department Care Team (Late st Contact Info) Description 08/20/2025 10:15 AM EDT Office Visit [facility] MEDICINE [address] [place] [address] Name, MD Zeb [address] [place] [address] 08/30/2025 11:00 AM EDT Medication Management [facility] [address] [place] [address] Jenna Webber, PharmD [address] [place] [address] 01/10/2026 1:00 PM EST Office Visit [facility] OPTOMETRY [address] [place] [address] Rebekah Kwon, OD [address] [place] [address] documented as of this encounter Goals Goal [...] Diagnoses Not on filedocumented in this encounter Care Teams Print Designer Relationship Specialty Start Date End Date Name, MD Zeb [address] [place] [address] PCP - General Family Medicine 02/12/16 Jenna Webber PharmD [address] [place] [address] Pharmacist Internal Medicine 01/22/23 documented as of this encounter
--- OUTSIDE RECORDS SUMMARY | 2025-08-03 09:02 | XMS_ITS | Encounter Summary ---
Author Organization [employer] Address [address] [facility] 7t [place] [address] Care Team Providers Care Electronics System Mechanic Name Role Phone Name, Zeb JOSHUA Primary Care Provider [phone] Jenna Webber PharmD Unavailable [phone] Encounter Details Date Type Department Care Team (Latest Contact Info) Description 08/01/2025 Travel Social History Tobacco Use Types Packs/Day [...] Description 08/20/2025 10:15 AM EDT Office Visit [facility] MEDICINE [address] [place] [address] Name, MD Zeb [address] [place] [address] 08/30/2025 11:00 AM EDT Medication Management [facility] MEDICINE [address] [place] [address] Puia, Jenna, PharmD [address] [place] [address] 01/10/2026 1:00 PM EST Office Visit [facility] OPTOMETRY [address] [place] [address] Doyle, Rebekah, OD [address] [place] [address] documented as of this encounter Goals Goal [...] documented as of this encounter Care Teams Electronics System Mechanic Relationship Specialty Start Date End Date Name, MD Zeb [address] [place] [address] PCP - General Family Medicine 02/12/16 Jenna Webber PharmD [address] [place] [address] Pharmacist Internal Medicine 01/22/23 documented as of this encounter
--- OUTSIDE RECORDS SUMMARY | 2025-08-03 09:02 | XMS_ITS | Encounter Summary ---
Author Organization [employer] Address [address] [facility] 7t [place] [address] Care Team Providers Care Cloth Colors Examiner Name Role Phone Name, Zeb JOSHUA Primary Care Provider [phone] Jenna Webber PharmD Unavailable [phone] Reason for Visit * Reason Onset Date Comments Nurse Triage 06/05/2024 Encounter Details Date Type Department Care Team ([facility] st Contact Info) Description 06/05/2024 Telephone [facility] MED[facility]INE [address] [place], [place] [phone] Name, MD Zeb [address] [place] [address] Nurse Triage Social History Tobacco Use Types Packs/Day Years [...] Patient Health Questionnaire-2 Score 0 03/17/2024 Comments Unknown Sex and Gender Information Value Date Recorded Sex Assigned at Female 09/21/2022 10:17 AM EDT Legal Sex Female 10:17 AM EDT Gender Identity Female 09/21/2022 10:17 AM EDT Sexual Orientation Choose not to disclose 2021 10:17 AM EDT documented as of this encounter Miscellaneous Notes * Telephone Encounter - Shobha Montgomery RN - 06/06/2024 10:22 AM EDT [facility], gave pt IVF and Torodol 15mg IV with improvement of symptoms. [facility] with [facility] and advised pt to f/uwith pcp. Pt is scheduled for f/u in June. * Telephone Encounter - Risa Isbell RN - 06/05/2024 1:52 PM EDT Call returned to Triny Monsivais to triage below. Spoke with Daughter Tristan who is on last signed HIPAA. Reports having left lower quadrant pain x today. Per daughter pain is constant. No N/V or diarrhea. No urianry sx. No fever. Duughter advised of need for eval today. Unable to come into [facility]. [facility] Sent to team for [facility] status check PRN. Protocol Used: Abdominal Pain - Female (Adult) Protocol-Based Disposition: See in Office or Video Visit Today Positive Triage Question: * Age > 60 years * All higher-acuity triage questions were negative Care Advice Discussed: * Reassurance and Education - Stomach Pain * Rest * Drink Clear Fluids * Diet * Pass a Stool * Reasons To Call Back - Severe pain lasts over 1 hour - You become worse * Telephone Encounter - Shruthi Blakelyo - 06/05/2024 1:02 PM EDT Symptom: Abdominal Pain - Female - Not (ovaries) Outcome: Schedule an appointment to be seen within 24 hours Reason: Caller denied all higher acuity questions The caller accepted this outcome Georgian speaker documented in this encounter Plan of Treatment Upcoming Encounters Date Type Department Care Team (Late st Contact Info) Description 08/20/2025 10:15 AM EDT Office Visit [facility] MEDICINE [address] [place] [address] Name, MD Zeb [address] [place] [address] 08/30/2025 11:00 AM EDT Medication Management [facility] MEDICINE [address] [place] [address] Puia, Jenna, PharmD [address] [place] [address] 01/10/2026 1:00 PM EST Office Visit [facility] OPTOMETRY [address] [place] [address] Doyle, Rebekah, OD [address] [place] [address] documented as of this encounter Goals Goal [...] Time PHQ-9 Depression Total Score: 0 03/17/20 10:39 AM EDT documented as of this encounter Care Teams Cloth Colors Examiner Relationship Specialty Start Date End Date Name, MD Zeb [address] [place] [address] PCP - General Family Medicine 02/12/16 Jenna Webber PharmD [address] [place] [address] Pharmacist Internal Medicine 01/22/23 documented as of this encounter
--- OUTSIDE RECORDS SUMMARY | 2025-08-03 09:02 | XMS_ITS | Encounter Summary ---
Author Organization [employer] Address [address] [facility] 7t [place] [address] Care Team Providers Care Lining Feller Name Role Phone Name, Zeb JOSHUA Primary Care Provider [phone] Jenna Webber PharmD Unavailable [phone] Encounter Details Date Type Department Care Team (Late st Contact Info) Description 04/26/[address] [phone] NameZeb MD [address] [place] [address] [phone] Social History Tobacco Use Types Packs/Day Years Used Date Smoking Tobacco: Never Smokeless Tobacco: Never Alcohol Use Standard Drinks/Week Comments Never 0 (1 standard drink = 0.6 oz pur e alcohol) Depression Answer Date Recorded Patient Health Questionnaire-2 [...] Description 08/20/2025 10:15 AM EDT Office Visit [address] [phone] Zeb Redding MD [address] [place] [address] 08/30/2025 11:00 AM EDT Medication Management [address] [place] [address] Jenna Webber, PharmD [address] [place] [address] 01/10/2026 1:00 PM EST Office Visit [facility] OPTOMETRY [address] [place] [address] Doyle, Rebekah, OD [address] [place] [address] documented as of this encounter Goals Goal Patient Goal Type Associated Problems Recent Progress Patient-Stated? Author Hemoglobin A1c < 7 Result Component 8.7( 10:46 AM EDT) No Jenna Webber PharmD Record your blood sugar as directed Result Component No Jenna Webber PharmD Note: Use CGM, ensuring sensor is scanned at least once every 8 hours to capture 24H data. Check BG manually, as directed. documented as of this encounter Procedures Procedure Name Priority Date/Time Associated Diagnosis Comments HM PAP/HPV Routine 07/26/2019 12:00 AM EDT documented in this encounter Results * Hm Pap Smear (07/26/2019 12:00 AM EDT) us Historical Provider HEALTH MAINTENANCE Final Result documented in this encounter Visit Diagnoses Not on filedocumented in this encounter Care Teams Lining Feller Relationship Specialty Start Date End Date Name, MD Zeb [address] [place] [address] PCP - General Family Medicine 02/12/16 Jenna Webber, PharmD [address] [place] [address] Pharmacist Internal Medicine 01/22/23 documented as of this encounter
--- OUTSIDE RECORDS SUMMARY | 2025-08-03 09:02 | XMS_ITS | Clinical Summary ---
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; COMMENT: benign on the right side COLONOSCOPY 07/22/2010 PROCEDURE: [place] COLONOSCOPY STOMA DX INCLUDING COLLJ SPEC SPX; COMMENT: Up to cecum, good preparation, small external hemorrhoids, otherwise normal colon exam Medical History Medical History Date Comments Depression DX:Depression Vaginitis and vulvovaginitis 09/23/2015 DX: Vaginitis and vulvovaginitis Family History Medical History Relation Name Comments Colon cancer Mother Breast cancer Sister 1 Ovarian cancer Neg Hx Relation Name Status Comments Mother Sister 1 Sister 2 Alive breast cancer Social History Tobacco Use Types Packs/Day Years Used Date Smoking Tobacco: Never Smokeless Tobacco: Never Alcohol Use Standard Drinks/Week Comments No 0 (1 standard drink = 0.6 oz pur e alcohol) Comments Unknown Sex and Gender Information Value Date Recorded Sex Assigned at Female 12/19/2024 7:45 AM EST Legal Sex Female 4:57 AM EST Gender Identity Female 12/19/2024 7:45 AM EST Sexual Orientation Not on file Obstetrics History Last Filed Vital Signs Vital Sign Reading Time Taken Comments Blood Pressure 141/64 12/19/2024 4:38 AM EST Pulse 94 12/19/2024 6:36 AM EST Temperature 36.7 C (98 F) 12/19/2024 4:38 AM EST Respiratory Rate 28 12/19/2024 6:36 AM EST Oxygen Saturation 99% 12/19/2024 4:38 AM EST Inhaled Oxygen Concentration - - Weight 63.5 kg (140 lb) 12/18/2024 9:22 PM EST Height 162.6 cm (5' 4 ) 12/18/2024 9:22 PM EST Body Mass Index 24.03 12/18/2024 9:22 PM EST Plan of Treatment Health Maintenance Due Date Last Done Comments Breast Cancer Screening 1960 Diabetes: Annual Foot Exam 01/25/1970 Diabetes: Annual Retina Eye Exam 01/25/1970 Cervical Cancer Screening: Pap Smear 01/25/1981 Colorectal Cancer Screening: Colonoscopy 10/25/2022 Hepatitis C Screening 10/25/2022 Osteoporosis Screening (Bone Density Screening) 10/25/2022 Social Influencers of Health Screening 10/25/2022 Diabetes: Annual Urine Albumin-Creatinine Ratio (uACR) 11/06/2022 Depression Screening 11/22/2024 Falls Risk Assessment 01/25/2025 Diabetes: Blood Sugar Control Test (HGBA1C) 03/20/2025 09/19/2024 COVID-19 Vaccine ( - season) 2025 Influenza Vaccine (#1) 2025 9, 08/19/2018, 09/07/2017, Additional history exists Diabetes: Annual GFR (Glomerular Filtration Rate) 12/18/2025 12/18/2024 Cholesterol Screening (Lipid Panel) 03/03/2029 03/03/2024 DTaP,Tdap,and Td Vaccines (3 - Td or Tdap) 02/24/2033 02/24/2023, 02/14/2013 Pneumococcal Vaccine: 50+ Years Completed 02/24/2023, 02/14/2013 RSV Immunization Adult Patients Completed 11/19/2023 Zoster Vaccines Completed 11/19/2023, 02/24/2023 [...] on patient's age to complete this topic MMR Vaccines Aged Out No longer eligi ble based on patient's age to complete this topic Meningococcal ACWY Vaccine Aged Out N o longer eligible based on patient's age to complete this topic Meningococcal B Vaccine Aged Out No l onger eligible based on patient's age to complete this topic RSV Immunization Patients Under 20 months Aged Out No longer eligible based on patient's age to complete this topic Varicella Vaccines Aged Out No longer eligible based on patient's age to complete this topic Procedures Procedure Name Priority Date/Time Associated Diagnosis Comments COMPREHENSIVE METABOLIC PANEL STAT 12/18/2024 9:57 PM EST from Last 3 Months or Most Recently Relevant to Health Maintenance Results * (ABNORMAL) Comprehensive metabolic panel (12/18/2024 9:57 PM EST) Sodium 135 133 - 145 mmol/L LAB CHEMISTRY METHOD 12/18/2024 11:00 PM [facility] Potassium 4.5 3.5 - 5.5 mmol/L LAB CHEMISTRY METHOD 12/18/2024 11:00 PM [facility] Chloride 103 96 - 110 mmol/L LAB CHEMISTRY METHOD 12/18/2024 11:00 PM [facility] CO2 29 21 - 32 mmol/L LAB CHEMISTRY METHOD 12/18/2024 11:00 PM [facility] Anion Gap 3 3 - 11 LAB CHEMISTRY METHOD 12/18/2024 11:00 PM [facility] Glucose 277(H) 70 - 100 mg/dL LAB CHEMISTRY METHOD 12/18/2024 11:00 PM [facility] BUN 20 5 - 25 mg/dL LAB CHEMISTRY METHOD 12/18/2024 11:00 PM [facility] Creatinine 1.02 0.50 - 1.10 mg/dL LAB CHEMISTRY METHOD 12/18/2024 11:00 PM [facility] eGFR 62 >=60 mL/min/1. 73m2 LAB CHEMISTRY METHOD 12/18/2024 11:00 PM [facility] Comment:Calculation based on the Chronic Kidney Disease Epidemiology Collaboration (CKD-EPI) equation refit without adjustment for race. BUN/Creatinine Ratio 19.6 LAB CHEMISTRY METHOD 12/18/2024 11:00 PM [facility] Calcium 9.5 8.5 - 10.5 mg/dL LAB CHEMISTRY METHOD 12/18/2024 11:00 PM [facility] AST (SGOT) 13 10 - 42 unit/L LAB CHEMISTRY METHOD 12/18/2024 11:00 PM [facility] ALT (SGPT) 20 10 - 60 unit/L LAB CHEMISTRY METHOD 12/18/2024 11:00 PM [facility] Alkaline Phosphatase 77 42 - 121 unit/L LAB CHEMISTRY METHOD 12/18/2024 11:00 PM [facility] Total Protein 6.9 6.0 - 8.0 g/dL LAB CHEMISTRY METHOD 12/18/2024 11:00 PM [facility] Albumin 3.6 3.2 - 5.0 g/dL LAB CHEMISTRY METHOD 12/18/2024 11:00 PM [facility] Total Bilirubin 0.2 0.0 - 1.4 mg/dL LAB CHEMISTRY METHOD 12/18/2024 11:00 PM [facility] Blood Venous blood specimen / Unknown Venipuncture / Unknown 12/18/2024 9:57 PM EST 12/18/2024 10:20 PM EST us Heriberto Velasco MD LAB BLOOD ORDERABLES Hannah l Result [facility] [address] [place] [address], from Last 3 Months or Most Recently Relevant to Health Maintenance Insurance [facility] MEDICAID [employer] [place] [id number] Care Teams External Grinder Tool Relationship Specialty Start Date End Date Physician, Pcp Unknown PCP - General 12/19/24
--- OUTSIDE RECORDS SUMMARY | 2025-08-03 09:02 | XMS_ITS | Encounter Summary ---
Author Organization [employer] Address [address] [place] [address] [address] [place] [address] Care Team Providers Care Strawhat Inspector And Packer Name Role Phone Name, Zeb JOSHUA Primary Care Provider [phone] Jenna Webber PharmD Unavailable [phone] Encounter Details Date Type Department Care Team (Late Contact Info) Description 04/15/2023 [facility] [employer] Information Management [address] [place] [address] [phone] NameZeb MD [address] [place] [address] [phone] Social History Tobacco Use Types Packs/Day Years [...] Description 08/20/2025 10:15 AM EDT Office Visit [facility] [address] [place] [address] [phone] Zeb Redding MD [address] [place] [address] [phone] 08/30/2025 11:00 AM EDT Medication Management [facility] [address] [place] [address] Jenna Webber PharmD [address] [place] [address] 01/10/2026 1:00 PM EST Office Visit [facility] [address] [place] [address] Doyle, Rebekah, OD [address] [place] [address] documented as of this encounter Goals Goal [...] on filedocumented in this encounter Care Teams Strawhat Inspector And Packer Relationship Specialty Start Date End Date Name, MD Zeb [address] [place] [address] PCP - General Family Medicine 02/12/16 Jenna Webber PharmD [address] [place] [address] Pharmacist Internal Medicine 01/22/23 documented as of this encounter
[2025-08-03 11:39] LABS: Alanine Aminotransferase 25 U/L (0-31); Albumin Level 4.4 g/dL (3.5-5.0); Alkaline Phosphatase 70 U/L (39-117); Anion Gap 11 (12-20); Aspartate Amino Transferase 24 U/L (5-31); Blood Urea Nitrogen 16 mg/dL (9-16); Calcium 9.6 mg/dL (8.4-10.2); Carbon Dioxide 27 mmol/L (22-29); Chloride 107 mmol/L (96-108); Cholesterol 179 mg/dL (<200); Estimated Glomerular Filt Rate > 60; HDL Cholesterol 60 mg/dL (>40); Potassium 4.7 mmol/L (3.3-5.1); Sodium 140 mmol/L (135-145); Total Protein 7.7 g/dL (6.5-8.0); Triglycerides 72 mg/dL (<150)
[2025-08-03 12:19] LABS: Vitamin B12 325 pg/mL (200-900)
[2025-08-03 12:39] LABS: Microalbum/Creatinine Ratio Ur 18.8 ug/mg cr (<30)
== END 2025-08-03 08:32 | disposition home or self-care (01) ==
LOC: HO.HHCL 08:31
PROVIDERS: PCP Internal Medicine Geriatric Medicine; Visit Provider Internal Medicine Geriatric Medicine
DX: E11.65 Type 2 diabetes mellitus with hyperglycemia (principal); E78.00 Pure hypercholesterolemia, unspecified
CPT/HCPCS: 36415; 80048; 80061; 80076; 82043; 82570; 82607

== ENCOUNTER 2025-10-04 13:13 | Outpatient (REF) | payer OTHER, SELFPAY ==
--- NOTE | ~2025-10-04 | MM_ITS ---
STUDY: DUAL ENERGY X-RAY ABSORPTIOMETRY / DXA REASON FOR EXAM: Female, 65 years old initial TECHNIQUE: Bone Mineral Density (BMD) measurements of the lumbar spine and left hip were obtained using [employer] COMPARISON: None FINDINGS: L1-L4 BMD: 1.071 g/cm2 L1-L4 T score: -0.9. This corresponds to Normal bone density. Left femoral neck BMD: 0.745 g/cm2 Left femoral neck T score: -2.1. This corresponds to osteopenia. Left total hip BMD: 0.724 g/cm2 Left total hip T score: -2.2. This corresponds to osteopenia. FRAX score: 10 year risk of major osteoporotic fracture 6.1%, 10 year risk of hip fracture 1.0% MM/XR DEXA axial skeleton IMPRESSION: Osteopenia Reference Information: The T-score is the number of standard deviations above or below the standard which is normal for young adults at their peak bone mineral density. The World Health Organization (WHO) interprets the T-scores as follows: At or above -1 SD Normal bone density Between -1 and -2.5 SD Osteopenia At or below -2.5 SD Osteoporosis Electronically signed by: Mikhail Izaguirre MD 10/04/2025 02:16 PM [facility]
--- OUTSIDE RECORDS SUMMARY | 2025-10-04 16:33 | XMS_ITS | Encounter Summary ---
Author Organization [employer] Address [address] [facility] [address] [place] [address] Care Team Providers Care Stiff Neck Loader Name Role Phone Name, Zeb JOSHUA Primary Care Provider [phone] Jenna Webber PharmD Unavailable [phone] Reason for Visit * Reason Onset Date Comments Results 10/04/2025 Encounter Details Date Type Department Care Team ([facility] st Contact Info) Description 10/04/2025 Results Follow-Up [facility] [address] [place] [address] Katt Donis CNM [address] [place] [address] BD DEXA Axial Social History Tobacco Use Types Packs/Day Years [...] encounter Miscellaneous Notes * Telephone Encounter - Chasidy Noriega RN - 10/04/2025 3:20 PM EST Telephone call to pt who was with daughter. Informed that DEXA bone scan shows osteopenia, not osteoporosis, meaning that the bones are less dense with time. Explained that her current risk for fracture is low, educated on importance of diet rich in Vitamin D and calcium and to do weight bearing exercise. No further questions. * Telephone Encounter - Chasidy Noriega RN - 10/04/2025 3:16 PM EST ----- Message from Katt Donis sent at 10/04/2025 2:23 PM EST ----- Please let Triny know that her bone density did not show osteoporosis, which is good. It did show lower bone mass or osteopenia, which is common as we age. Her overall risk for fracture is low, so I would advise a calcium and Vit D rich diet, stay active with weight bearing exercise, avoid smoking. Report fractures. Thanks! ----- Message ----- From: Shaheen Duran Results In Sent: 10/04/2025 2:20 PM EST To: Katt Donis CNM * Result Encounter Note - Katt Donis CNM - 10/04/2025 2:23 PM EST Please let Triny know that her bone density did not show osteoporosis, which is good. It did show lower bone mass or osteopenia, which is common as we age. Her overall risk for fracture is low, so I would advise a calcium and Vit D rich diet, stay active with weight bearing exercise, avoid smoking.Report fractures. Thanks! documented in this encounter Plan of Treatment Upcoming Encounters Date Type Department Care Team (Late st Contact Info) Description 10/16/2025 1:30 PM EST Medication Management [facility] [address] [place] [address] Jenna Webber PharmD [address] [place] [address] 01/10/2026 1:00 PM EST Office Visit [facility] OPTOMETRY [address] [place] [address] Doyle, Rebekah, OD [address] [place] [address] documented as of this encounter Goals Goal Patient Goal Type Associated Problems Recent Progress Patient-Stated? Author Hemoglobin A1c < 7 Result Component 9.7( 10:22 AM EDT) No Jenna Webber, PharmD Record your blood sugar as directed Result Component No Jenna Webber, PharmD Note: Use CGM, ensuring sensor is scanned at least once every 8 hours to capture 24H data. Check BG manually, as directed. Help patients manage their type 2 diabetes Care Plan Help patients manage their type 2 diabetes No Chasidy Noriega, RN Patient has chronic kidney disease Care Plan Patient has chronic kidney disease No Chasidy Noriega, RN documented as of this encounter Visit Diagnoses Not on filedocumented in this encounter Additional Health Concerns Active Problems Noted Date Diagnosed Date Help patients manage their type 2 diabetes 10/04 Patient has chronic kidney disease 10/04/2025 Assessment Noted Time PHQ-9 Depression Total Score: 4 06/06/20 25 11:34 AM EDT documented as of this encounter Care Teams Stiff Neck Loader Relationship Specialty Start Date End Date Name, MD Zeb [address] [place] [address] PCP - General Family Medicine 02/12/16 Jenna Webber PharmD [address] [place] [address] Pharmacist Internal Medicine 01/22/23 documented as of this encounter
--- OUTSIDE RECORDS SUMMARY | 2025-10-04 16:33 | XMS_ITS | Encounter Summary ---
Author Organization [employer] Address [address] [facility] [address] [place] [address] Care Team Providers Care Production Cost Estimator Name Role Phone Name, Zeb JOSHUA Primary Care Provider [phone] Jenna Webber PharmD Unavailable [phone] Reason for Visit * Reason Comments Med Refill Encounter Details Date Type Department Care Team ([facility] st Contact Info) Description 09/12/2025 Refill [facility] [address] [place] [address] Monica Barba DO [address] [place] [address] Social History Tobacco Use Types Packs/Day Years [...] Description 10/16/2025 1:30 PM EST Medication Management [facility] [address] [place] [address] Jenna Webber, PharmD [address] [place] [address] 01/10/2026 1:00 PM EST Office Visit [facility] [address] [place] [address] Doyle, Rebekah, OD [address] [place] [address] documented as of this encounter Goals Goal Patient Goal Type Associated Problems Recent Progress Patient-Stated? Author Hemoglobin A1c < 7 Result Component 9.7( 5 10:22 AM EDT) No Nnamdi Webberyssa, PharmD Record your blood sugar as directed [...] documented as of this encounter Care Teams Production Cost Estimator Relationship Specialty Start Date End Date Name, MD Zeb [address] [place] [address] PCP - General Family Medicine 02/12/16 Jenna Webber, Herman [address] [place] [address] Pharmacist Internal Medicine 01/22/23 documented as of this encounter
--- OUTSIDE RECORDS SUMMARY | 2025-10-04 16:33 | XMS_ITS | Clinical Summary ---
Author Organization [employer] Address [address] [facility] 7t [place] [address] Care Team Providers Care Cooler Operator Name Role Phone Name, Zeb JOSHUA Primary Care Provider [phone] Jenna Webber PharmD Unavailable [phone] Allergies Active Allergy Reactions Criticality Noted [...] glucagon (Baqsimi Two Pack) 3 MG/DOSE nasal powderIndicati ons:Type 2 diabetes mellitus without complication, with long-term current use of insulin (HCC) USE 1 SPRAY (3MG) IN ONE NOSTRIL [...] mg tab (TDD = 50 MG) 10/31/20 Active glucose 4 g chewable tabletIndicati ons:Type 2 diabetes mellitus without complication, with long-term current use of insulin ([facility]) Chew 4 tablets (16 g) if needed for low blood sugar. (BG < 70 MG/DL). Recheck BG after 15 mins and repeat treatment PRN. 20 tablet 5 01/31/20 25 2025 Active insulin pen needle (BD Pen Needle Elvia 2nd Gen) 32G x 4 mm miscIndication s:Type 2 diabetes mellitus without complication, with long-term current use of insulin ([facility]) Use to inject insulin 1 time daily. 100 each 01/31/20 25 Active metFORMIN (Glucophage) 1000 MG tablet Take 1 tablet (1,000 mg) by mouth with breakfast and with evening meal. 180 tablet 3 01/31/20 25 Active OneTouch Delica Lancets 33G miscIndication s:Type 2 diabetes mellitus without complication, with long-term current use of insulin ([facility]) USE TO TEST BLOOD SUGAR TWICE A DAY 100 each 01/31/20 25 Active acetaminophen (Tylenol) 325 MG tablet Take 325 mg by mouth every 8 (eight) hours if needed for moderate pain or fever. 02/14/20 25 Active glucose blood (FreeStyle Precision Sha Test) test stripIndicatio ns:Type 2 diabetes mellitus with hyperglycemia, unspecified whether mcc insulin use ([facility]) USE TO TEST BLOOD SUGAR TWICE DAILY 50 strip 04/06/20 25 Active ibuprofen 400 MG tablet Take 1 tablet (400 mg) by mouth every 6 (six) hours if needed for moderate pain. 30 tablet 1 06/07/20 25 2025 Active insulin glargine (Toujeo SoloStar) 300 UNIT/ML injectionIndic ations:Type 2 diabetes mellitus without complication, with long-term current use of insulin ([facility]) Inject 32 Units under the skin at bedtime. 4.5 mL 5 06/08/20 25 Active Dulaglutide (Trulicity) 3 MG/0.5ML solution auto-injector Inject 3 mg under the skin 1 (one) time per week. 2 mL 08/30/20 Active atorvastatin (Lipitor) 80 MG tabletIndicati ons:High cholesterol Take 1 tablet (80 mg) by mouth in the morning. 90 tablet 1 08/30/20 Active Continuous Glucose Sensor (FreeStyle Amanda 2 Plus Sensor) miscIndication s:Type 2 diabetes mellitus with hyperglycemia, with long-term current use of insulin (HCC) 1 Device every 15 days. Apply 1 sensor as directed every 15 days for CGM 2 each 08/30/20 Active Insulin Disposable Pump (Omnipod 5 Libre2 G6 Intro G5) kitIndications :Type 2 diabetes mellitus with hyperglycemia, with long-term current use of insulin (HCC) 1 Device Once per day. Use as directed for insulin administration. One kit = 30 day supply. 1 kit 08/30/20 Active Additional Information Patient not taking.Reason: will start in TM 10/16/25, Reported on 09/28/2025 Insulin Disposable Pump (Omnipod 5 Libre2 Plus G6 Pods) miscIndication s:Type 2 diabetes mellitus with hyperglycemia, with long-term current use of insulin (HCC) 1 Device every 3 (three) days. Wear daily for insulin administration. Apply a new pod every 72 hours as directed.) 10 each 08/30/20 Active Additional Information Patient not taking.Reason: will start in CD 10/16/25, Reported on 09/28/2025 Insulin Lispro 100 UNIT/ML solutionIndica tions:Type 2 diabetes mellitus with hyperglycemia, with long-term current use of insulin (HCC) Inject 2 mL (200 Units) as directed every 3 (three) days. Use 200 units to fill Omnipod every 3 days, as directed. 2 vials = 30d supply. 09/28/20 Active Continuous Glucose X Ray Consultant (FreeStyle Amanda 3 [place]) deviceIndicati ons:Type 2 diabetes mellitus with hyperglycemia, unspecified whether mcc insulin use (HCC) 1 each Once per day. Use as directed for CGM 1 each 04/06/202024 Discontinued(T herapy completed) Continuous Glucose Sensor (FreeStyle Amanda 3 Plus Sensor) miscIndication s:Type 2 diabetes mellitus with hyperglycemia, unspecified whether mcc insulin use (HCC) Apply 1 every 15 days as directed for CGM 2 each 04/06/202024 Discontinued(T herapy completed) Insulin Lispro 100 UNIT/ML solutionIndica tions:Type 2 diabetes mellitus with hyperglycemia, with long-term current use of insulin (HCC) Inject 2 mL (200 Units) as directed every 3 (three) days. Use 200 mL to fill Omnipod every 3 days as directed. 2 vials = 30d supply. 20 mL 09/28/202024 Discontinued(R eorder (will not trigger notification to Pharmacy)) Active Problems Problem Noted Date Diagnosed Date Urinary incontinence 05/20/2022 Asthma 06/23/2016 Type 2 diabetes mellitus wit hout complication, with long-term current use of insulin 02/12/2016 Assessment & Plan (06/06/2025 1:32 PM EDT): -patient declines hypoglycemic events in past 2 weeks -A1c 8.7% in clinic today which is improved from 9.6% in March -patient is scheduled with [facility] Pharmacist Jenna on 06/08 @10: 30 am. Will defer insulin titration for now given that patient has not experienced labile readings since returning to [facility]. She is encouraged to keep that appointment [...] Encounters Date Type Department Care Team Description 10/04/2025 Results Follow-Up [address] [address] Cholo Nguyễn CNM BD DEXA Axial 09/28/2025 Travel 09/12/2025 Refill [facility] [address] [place] [phone] Monica Barba, 09/04/2025 Refill [facility] [address] [place] [phone] Monica Barba, DO 08/30/[address] [address] Jenna Webber PharmD Prior Authorization (Omnipod & Amanda 2 plus sensors ) 08/30/2025 Travel 08/20/2025 10:15 AM EDT Office Visit [address] [address] Zeb Redding MD Type 2 diabetes mellitus without complication, with long-term current use of insulin ([facility]) (Primary Dx); Encounter for immunization 08/20/2025 Travel 08/17/[address] [address] Erich Crain MA chart prep 08/15/[address] [address] Zeb Redding MD Call Back 08/14/[address] [address] Jenna Webber, PharmD 08/10/2025 Patient Outreach [facility] [address] [place] [address] Zeb Redding MD Pre-visit Planning (SDOH unable to reach M ) 08/10/[address] [address] Zeb Redding MD Durable Medical Equipment 08/03/2025 Orders Only [address] [address] Zeb Redding MD 08/02/2025 Travel 08/01/2025 11:00 AM EDT Procedure Visit [facility] [address] [place] [address] Cholo Nguyễn CNM Menopausal and postmenopausal disorder (Primary Dx); Visit for pelvic exam; Family history of breast cancer; Breast cancer screening by mammogram 08/01/2025 Travel 07/31/2025 Telephone [facility] [address] [place] [address] Cholo Nguyễn CNM CHART PREP 07/25/2025 Telephone [facility] [address] [place] [address] Zeb Redding MD Durable Medical Equipment 07/09/2025 1:00 PM EDT Office Visit [facility] [address] [place] [address] Doyle, Rebekah, OD Diabetes type 2, no ocular involvement (CMS/HCC) (Primary Dx); Adult vitelliform macular dystrophy; Lattice degeneration of peripheral retina, left; Pseudophakia of both eyes; Presbyopia of both eyes 07/09/2025 Travel from Last 3 Months Immunizations Immunization Administration Dates Next Due Influenza injectable quadriv alent IIV4 with preservative 08/08/2019,08/19/2018,09/07/2017 Influenza, High Dose Seasona l, Preservative Free 08/20/2025 Influenza, IIV3, injectable 08/16/2015,0 08/11/2013,10/28/2012,10/24,10/29/2008 Novel nasmrvjso-L4X3-97, preservative-free 02/18/2010 Pneumococcal Conjugate PCV 20 02/24/2023 [...] Reading Time Taken Comments Blood Pressure 110/62 08/20/2025 10:18 AM EDT Pulse 96 08/20/2025 10:18 AM EDT Temperature 36.4 C (97.5 F) 08/20/2025 10:18 AM EDT Respiratory Rate 18 08/20/2025 10:1 8 AM EDT Oxygen Saturation 99% 08/20/2025 10: 18 AM EDT Inhaled Oxygen Concentration - - Weight 58.4 kg (128 lb 12.8 oz) 025 10:18 AM EDT Height 162.6 cm (5' 4 ) 08/20/2025 10:1 8 AM EDT Body Mass Index 22.11 08/20/2025 10:18 AM EDT Plan of Treatment Upcoming Encounters Date Type Department Care Team (Late st Contact Info) Description 10/16/2025 1:30 PM EST Medication Management [facility] [address] [place] [address] Jenna Webber, PharmD [address] [place] [address] 01/10/2026 1:00 PM EST Office Visit [facility] [address] [place] [address] Doyle, Rebekah, OD [address] [place] [address] Health Maintenance Due Date Last Done Comments CT Colonography 1960 FIT DNA/Cologuard 1960 FIT 1960 FOBT 1960 Sigmoidoscopy 1960 Hepatitis C Screening 01/25/1978 COVID-19 Vaccine ( season) 2025 Diabetes: Hemoglobin A1C 11/19/2025 025, 06/06/2025, 04/06/2025, Additional history exists Colonoscopy 12/25/2025 12/25/2020, 12/25/2020 Colorectal Cancer Screening 12/25/2025 Mammogram 04/04/2026 04/04/2024, 07, 06/10/2022, Additional history exists Depression Screening 06/06/2026 06/06/2025, 06/06/20 25 SDOH Screening 06/06/2026 06/06/2025 Alcohol/Substance Use Screening 08/01/2026 08/01/2025 Diabetes: Urine Protein Screening 08/03/2026 08/03/2025, 03/03/2024, 10/07/2022, Additional history exists Lipid Panel 08/03/2026 08/03/2025, 02/20, 10/07/2022, Additional history exists Diabetes: Foot Exam 08/20/2026 08/20/2025, 08/20/2025, 08/20/2025, Additional history exists Tobacco Screening 08/20/2026 08/20/2025 Eye Exam 07/09/2027 07/09/2025, 06/22, 07/09/2025, Additional history exists Cervical Cancer Screening 07/26/2029 HPV/Cotest 07/26/2029 07/26/2024, 07/26/2019 Pap Smear 07/26/2029 07/26/2024, 07/26/2019 DTaP/Tdap/Td Vaccines (3 - Td or Tdap) 02/24/2033 02/24/2023, 02/14/2013 Pneumococcal Vaccine: 50+ Years Completed 02/24/2023, 02/14/2013 RSV Patients and Patients Aged 60 years or older Completed 11/19/2023 Zoster Vaccines Completed 11/19/2023, 02/24/2023 Influenza Vaccine Completed 08/20/2025, , 08/19/2018, Additional history exists HIB Vaccines Aged Out No longer eligi [...] Result Component 9.7( 10:22 AM EDT) No Jordinia, Jenna, PharmD Record your blood sugar as directed Result Component No Akbar, Jenna, PharmD Note: Use CGM, ensuring sensor is scanned at least once every 8 hours to capture 24H data. Check BG manually, as directed. Help patients manage their type 2 diabetes Care Plan Help patients manage their type 2 diabetes No Chasidy Noriega, RN Patient has chronic kidney disease Care Plan Patient has chronic kidney disease Chasidy Lopez, gas tender Procedure Name Priority Date/Time Associated Diagnosis Comments BD DEXA AXIAL Routine 10/04/2025 1:16 PM EST Menopausal and postmenopausal disorder POCT GLYCATED HEMOGLOBIN, TOTAL Routine 08/20/2025 10:22 AM EDT Type 2 diabetes mellitus without complication, with long-term current use of insulin ([facility]) POCT GLUCOSE Routine 08/20/2025 10:21 AM EDT Type 2 diabetes mellitus without complication, with long-term current use of insulin ([facility]) ALBUMIN, RANDOM URINE W/CREATININE Routine 08/03/2025 8:36 AM EDT VITAMIN B12 Routine 08/03/2025 8:36 AM EDT LIPID PANEL, STANDARD Routine 08/03/2025 8:36 AM EDT BASIC METABOLIC PANEL Routine 08/03/2025 8:36 AM EDT HEPATIC FUNCTION PANEL Routine 08/03/2025 8:36 AM EDT OCT, RETINA - OU - BOTH EYES Routine 07/09/2025 1:00 PM EDT Adult vitelliform macular dystrophy THINPREP IMAGING PAP AND HPV MRNA E6/E7 Routine 07/26/2024 11:48 AM EDT BI MAMMOGRAM SCREENING TOMOSYNTHESIS BILATERAL Routine 04/04/2024 10:33 AM EDT HM COLONOSCOPY Routine 12/25/2020 from Last 3 Months or Most Recently Relevant to Health Maintenance Results * BD DEXA Axial (10/04/2025 1:16 PM EST) Anatomical Region Laterality Modality Body Radiographic Brissa ging 10/04/2025 1:16 PM EST Narrative 10/04/2025 2:19 PM EST [facility] [address] [place] [address] Mammography Report Signed Patient: Triny Monsivais MR#: [id number] 494 : 1960 Acct:[id number] Age/Sex: 65 / F ADM Date: 10/04/25 Loc: HO.MAMMO Attending Dr: Zeb Redding MD Ordering Physician: CHOLO NGUYỄN CNM Results: Date of Service: 10/04/25 Follow Up: Procedure(s): XR DEXA axial skeleton Accession Number(s): [id number] cc: Zeb Redding MD; CHOLO NGUYỄN CNM Reason For Exam: initial STUDY: DUAL ENERGY X-RAY ABSORPTIOMETRY / DXA REASON FOR EXAM: Female, 65 years old initial TECHNIQUE: Bone Mineral Density (BMD) measurements of the lumbar spine and left hip were obtained using C2cube COMPARISON: None FINDINGS: L1-L4 BMD: 1.071 g/cm2 L1-L4 T score: -0.9. This corresponds to Normal bone density. Left femoral neck BMD: 0.745 g/cm2 Left femoral neck T score: -2.1. This corresponds to osteopenia. Left total hip BMD: 0.724 g/cm2 Left total hip T score: -2.2. This corresponds to osteopenia. FRAX score: 10 year risk of major osteoporotic fracture 6.1%, 10 year risk of hip fracture 1.0% MM/XR DEXA axial skeleton IMPRESSION: Osteopenia Reference Information: The T-score is the number of standard deviations above or below the standard which is normal for young adults at their peak bone mineral density. The World Health Organization (WHO) interprets the T-scores as follows: At or above -1 SD Normal bone density Between -1 and -2.5 SD Osteopenia At or below -2.5 SD Osteoporosis Electronically signed by: Mikhail Izaguirre MD 10/04/2025 02:16 PM EST Dictated By: Mikhail Izaguirre MD Signed By: <Electronically signed by Mikhail Izaguirre MD in OV> 10/04/25 1416 DD/ 1316 TD/TT: 10/04/25 1340 Towel Hemmer: Procedure Note Donotuseinterpreter, Image - 10/04/2025 [facility] [address] [place] [address] Mammography Report Signed Patient: Mira Monsivais#: [id number] 494 : 1960Acct:[id number] Age/Sex: 65 / FADM Date: 10/04/25 Loc: HO.MAMMO Attending Dr: Zeb Redding MD Ordering Physician: CHOLO NGUYỄNesults: Date of Service: 10/04/25Follow Up: Procedure(s): XR DEXA axial skeleton Accession Number(s): [id number] cc: Zeb Redding MD; CHOLO NGUYỄN CNM Reason For Exam: initial STUDY: DUAL ENERGY X-RAY ABSORPTIOMETRY / DXA REASON FOR EXAM: Female, 65 years old initial TECHNIQUE: Bone Mineral Density (BMD) measurements of the lumbar spine and left hip were obtained using Football MeisterigSVXR COMPARISON: None FINDINGS: L1-L4 BMD: 1.071 g/cm2 L1-L4 T score: -0.9. This corresponds to Normal bone density. Left femoral neck BMD: 0.745 g/cm2 Left femoral neck T score: -2.1. This corresponds to osteopenia. Left total hip BMD: 0.724 g/cm2 Left total hip T score: -2.2. This corresponds to osteopenia. FRAX score: 10 year risk of major osteoporotic fracture 6.1%, 10 year risk of hip fracture 1.0% MM/XR DEXA axial skeleton IMPRESSION: Osteopenia Reference Information: The T-score is the number of standard deviations above or below the standard which is normal for young adults at their peak bone mineral density. The World Health Organization (WHO) interprets the T-scores as follows: At or above -1 SD Normal bone density Between -1 and -2.5 SD Osteopenia At or below -2.5 SD Osteoporosis Electronically signed by: Mikhail Izaguirre MD 10/04/2025 02:[address] [facility] Dictated By: Mikhail Izaguirre MD Signed By: <Electronically signed by Mikhail Izaguirre MD in OV> 10/04/25 1416 DD/ 1316 TD/TT: 10/04/25 1340 Towel Hemmer: Cholo Nguyễn CNM IMG DXA PROCEDURES Final Result * (ABNORMAL) POCT Hgb A1c (08/20/2025 10:22 AM EDT) [facility] Hemoglobin A1C 9.7(A) 4.0 - 5.7 % QC Media Lot # [id number] Lot# Expiration Date 41,627 Blood 08/20/2025 10:2 2 AM EDT Zeb Redding MD POINT OF CARE TEST ENTER/EDIT OR DERABLES Final Result * POCT Glucose (08/20/2025 10:21 AM EDT) Pathologist [facility] Glucose Blood, POC 157 60 - 200 mg/dL QC Media Lot # [id number] Lot# Expiration Date 31,126 Blood Capillary blood specimen / Unknown 08/20/2025 10:21 AM EDT us Zeb Redding MD POINT OF CARE TEST ENTER/EDIT OR DERABLES Final Result * Albumin, Random Urine W/Creatinine (08/03/2025 8:36 AM EDT) Creatinine, Urine 63.69 mg/dL [facility] Microalbumin Urine 12.0 mg/L [facility] Microalbum Creatinine Ratio Ur 18.8 <30 ug/mg cr [facility] Comment:Albumin/Creatinine R atio Reference Ranges: Normal: < 30 ug/mg creatinine Microalbuminuria: 30 - 300 ug/mg creatinineClinical Albuminuria: > 300 ug/mg creatinine 08/03/2025 8:36 AM EDT 08/03/2025 11:44 AM EDT us Zeb Redding MD LAB URINE ORDERABLES Final Resul t Performing Organization Address [facility] de Phone Number [facility] [address] [place] [phone] * Vitamin B12 (08/03/2025 8:36 AM EDT) Vitamin B12 325 200 - 900 pg/mL [facility] Comment:NORMAL 200-900 PG/ML INDETERMINATE 160-199 PG/ML DEFICIENT < 160 PG/ML 08/03/2025 8:36 AM EDT 08/03/2025 11:11 AM EDT us Zeb Redding MD LAB BLOOD ORDERABLES Final Resul t Performing Organization Address [facility] Co de Phone Number [facility] [address] [place] [phone] * Hepatic Function Panel (08/03/2025 8:36 AM EDT) Bilirubin, Total 0.2 0.0 - 1.0 mg/dL [facility] Bilirubin, Direct <0.2 0.0 - 0.5 mg/dL [facility] Aspartate Amino Transferase 24 5 - 31 U/L [facility] Alanine Aminotransferase 25 0 - 31 U/L [facility] Total Protein 7.7 6.5 - 8.0 g/dL [facility] Albumin Level 4.4 3.5 - 5.0 g/dL [facility] Alkaline Phosphatase 70 39 - 117 U/L [facility] 08/03/2025 8:36 AM EDT 08/03/2025 11:11 AM EDT Zeb Redding MD LAB BLOOD ORDERABLES Final Resul t Performing Organization Address [facility] de Phone Number [facility] [address] [place] [phone] * (ABNORMAL) Lipid Panel, Standard (08/03/2025 8:36 AM EDT) Triglycerides 72 <150 mg/dL [facility] Comment:Desirable Triglyceri de: less than 150 mg/dLBorderline High Triglyceride 150-199 mg/dLHigh Triglyceride: 200-499 mg/dLVery High Triglyceride: greater than or equal to 5OO mg/dL Cholesterol 179 <200 mg/dL [facility] Comment:Desirable Cholestero l: less than 200 mg/dLBorderline High Cholesterol: 200-239 mg/dLHigh Cholesterol: greater than 239 mg/dL LDL Cholesterol Calculated 105(H) <100 mg/dL [facility] Comment:Desirable LDL: less than 100 mg/dLNear Optimal/Above Optimal LDL: 110- 129 mg/dLBorderline High LDL: 130-159 mg/dLHigh LDL: 160-189 mg/dLVery High LDL: greater than or equal to 190 mg/dL HDL Cholesterol 60 >40 mg/dL [facility] Comment:Desirable HDL: great er than 40 mg/dL Note: This HDL assay may give artificially low results in patients with liver disease. 08/03/2025 8:36 AM EDT 08/03/2025 11:11 AM EDT us Zeb Redding MD LAB BLOOD ORDERABLES Final Resul t Performing Organization Address City/[facility]/ZIP Co de Phone Number [facility] [address] [place] [phone] * (ABNORMAL) Basic Metabolic Panel (08/03/2025 8:36 AM EDT) Sodium 140 135 - 145 mmol/L [facility] Potassium 4.7 3.3 - 5.1 mmol/L [facility] Chloride 107 96 - 108 mmol/L [facility] Carbon Dioxide 27 22 - 29 mmol/L [facility] Anion Gap 11(L) 12 - 20 [facility] Urea Nitrogen (BUN) 16 9 - 16 mg/dL [facility] Creatinine, Serum 0.74 0.5 - 1.4 mg/dL [facility] Estimated Glomerular Filt Rate >60 [facility] Comment:Chronic Kidney Disea se: Estimated GFR < 60 mL/min/1.89r9Gzntcz Kidney Disease: Estimated GFR < 15 mL/min/1.73m2 Glucose 198(H) 60 - 115 mg/dL [facility] Calcium 9.6 8.4 - 10.2 mg/dL [facility] 08/03/2025 8:36 AM EDT 08/03/2025 11:11 AM EDT us Zeb Name LAB BLOOD ORDERABLES Final Resul t Performing Organization Address [facility] de Phone Number [facility] [address] [place] [phone] * OCT, Retina - OU - Both Eyes (07/09/2025 1:00 PM EDT) Narrative Rebekah Kwon, OD - 08/01/2025 12:16 PM EDT Images [...] months, sooner with any changes in vision. us Rebekah Kwon OD OPHTH TOMOGRAPHY Final Result * ThinPrep Imaging Pap and HPV mRNA E6/E7 (07/26/2024 11:48 AM EDT) HPV nRNA E6/E7 Not Detected Not Detected [facility] Comment:Methodology: Transcr iption-Mediated AmplificationThis assay detects E6/E7 viral messenger RNA (mRNA) from 14high-risk HPV types (16,18,31,33,35,39,45,51,52,56,58,59,66,68).Cervical sources are required for HPV testing.If a vaginal source from a patient who has had atotal hysterectomy with removal of cervix wassubmitted, please contact the testing laboratoryfor alternative testing options.For additional information, please refer [email or web address]/[email or web address](This link if provided for information/educational purposes only.)THIS TEST WAS PERFORMED AT:[employer] [address] [phone] ANTON MD SOURCE: SEE NOTE [facility] Comment:None given Report Status: [facility] Clinical Information: SEE NOTE [facility] Comment:None given LMP: SEE NOTE [facility] Comment:NONE GIVEN Prev. PAP: SEE NOTE [facility] Comment:NONE GIVEN Prev. BX: SEE NOTE [facility] Comment:NONE GIVEN Statement Of Adequacy: SEE NOTE [facility] Comment:SATISFACTORY FOR BLANCO LUATION General Categorization: [facility] Interpretation/Result: SEE NOTE [facility] Comment:Cytology Results: Ne gative for intraepitheliallesion or malignancy.Atrophic pattern; predominantly parabasal cells Cytology Comment SEE NOTE [facility] Comment:This Pap test has be en evaluated with computerassisted technology. Hatchery Attendant: SEE NOTE [facility] Comment:DMM, CT(ASCP)CT scre ening location: [address] [address] Review Hatchery Attendant: [facility] Pathologist [facility] PAP Infection [facility] See Note SEE NOTE [facility] Comment:EXPLANATORY NOTE:The Pap is a [...] AM EDT 07/26/2024 5:27 PM EDT Narrative [facility] - 08/01/2024 1:18 PM EDT SEE SCANNED RESULTS IN EMR [facility] PATHOLOGY ORDERABLES Final Result Performing Organization Address City/State/[facility] Co de Phone Number [facility] [address] [place] [address] [phone] * BI Mammogram Screening Tomosynthesis Bilateral (04/04/2024 10:33 AM EDT) Anatomical Region Laterality Modality Breast Bilateral Mammography 04/04/2024 10:3 3 AM EDT Narrative 05/05/2024 5:21 AM EDT [address] [place] [address] Mammography Report Signed Patient: Triny Monsivais MR#: [id number] 494 : 1960 Acct:[id number] Age/Sex: 64 / F ADM Date: 04/04/24 Loc: HO.MAMMO Attending Dr: Zeb Redding MD Ordering Physician: Zeb Redding MD Results: 1Negative Date of Service: 04/04/24 Follow Up: 1 Year From Orig ina Mammogram Procedure(s): MM tomosynthesis screening BI Accession Number(s): [id number] cc: Zeb Redding MD EXAMINATION: MM SCREENING [...] in OV> 05/05/24 0516 DD/ 1033 TD/TT: Towel Hemmer: Procedure Note Donotuseinterpreter, Image - 05/05/2024 [facility] [address] [place], [place] [address] Mammography Report Signed Patient: Triny Monsivais#: [id number] : 1960Acct:[id number] Age/Sex: 64 / FADM Date: 04/04/24 Loc: [place] Attending Dr: Zeb Redding MD Ordering Physician: Zeb Redding MDResults: 1Negative Date of Service: 04/04/24Follow Up: 1 Year From Orig ina Mammogram Procedure(s): MM tomosynthesis screening BI Accession Number(s): [id number] cc: Zeb Redding MD EXAMINATION: MM SCREENING [...] in OV> 05/05/24 0516 DD/ 1033 TD/TT: Towel Hemmer: Zeb Name IM BI PROCEDURES Edited Result - Final * (ABNORMAL) Colonoscopy (12/25/2020) Colonoscopy Abnormal( A) Normal Comment:repeat in 5 years Historical Provider HEALTH MAINTENANCE Final Result from Last 3 Months or Most Recently Relevant to Health Maintenance Additional Health Concerns Active Problems Noted Date Diagnosed Date Help patients manage their type 2 diabetes 10/04 Patient has chronic kidney disease 10/04/2025 Insurance [id number] < 65 [place] [id number] Care Teams Cooler Operator Relationship Specialty Start Date End Date Name, MD Zeb [address] [place] [address] PCP - General Family Medicine 02/12/16 Jenna Webber, Herman [address] [place] [address] Pharmacist Internal Medicine 01/22/23
--- OUTSIDE RECORDS SUMMARY | 2025-10-04 16:33 | XMS_ITS | Encounter Summary ---
Author Organization [employer] Address [address] [facility] 7t [place] [address] Care Team Providers Care Physician President Name Role Phone Name, Zeb JOSHUA Primary Care Provider [phone] Jenna Webber PharmD Unavailable [phone] Reason for Visit * Reason Comments Med Refill Encounter Details Date Type Department Care Team ([facility] st Contact Info) Description 09/04/[address] [facility] [address] [place] [address] Monica Barba DO [address] [place] [address] Social History Tobacco Use Types Packs/Day Years [...] is your housing situation today? I have fraiha sebastian 06/06/[address] you [...] Description 10/16/2025 1:30 PM EST Medication Management [facility] [address] [place] [address] Jenna Webber, PharmD [address] [place] [address] 01/10/2026 1:00 PM EST Office Visit [facility] [address] [place] [address] Doyle, Rebekah, OD [address] [place] [address] documented as of this encounter Goals Goal [...] documented as of this encounter Care Teams Physician President Relationship Specialty Start Date End Date Name, MD Zeb [address] [place] [address] PCP - General Family Medicine 02/12/16 Jenna Webber, Herman [address] [place] [address] Pharmacist Internal Medicine 01/22/23 documented as of this encounter
--- OUTSIDE RECORDS SUMMARY | 2025-10-04 16:34 | XMS_ITS | Encounter Summary ---
Author Organization [employer] Address [address] [facility] 7t [place] [address] Care Team Providers Care Power House Control Room Operator Name Role Phone Name, Zeb JOSHUA Primary Care Provider [phone] Jenna Webber PharmD Unavailable [phone] Reason for Visit * Reason Onset Date Comments callback requested 10/31/2024 Encounter Details Date Type Department Care Team ([facility] st Contact Info) Description 10/31/2024 Telephone [facility] [address] [place], [place] [phone] Name, MD Zeb [address] [place] [address] callback requested Social History Tobacco Use Types [...] ask to PCP or [place]. Callback number [phone] documented in this encounter Plan of Treatment Upcoming Encounters Date Type Department Care Team (Late st Contact Info) Description 10/16/2025 1:30 PM EST Medication Management [facility] [address] [place] [address] Jenna Webber, PharmD [address] [place] [address] 01/10/2026 1:00 PM EST Office Visit [facility] [address] [place] [address] Doyle, Rebekah, OD [address] [place] [address] documented as of this encounter Goals Goal Patient Goal Type Associated Problems Recent Progress Patient-Stated? Author Hemoglobin A1c < 7 Result Component 9.7( 10:22 AM EDT) No Jordinia Jenna, PharmD Record your blood sugar as directed Result Component No Jordinia Jenna, PharmD Note: Use CGM, ensuring sensor is scanned at least once every 8 hours to capture 24H data. Check BG manually, as directed. documented as of this encounter Visit Diagnoses Not on filedocumented in this encounter Additional Health Concerns Assessment Noted Time PHQ-9 Depression Total Score: 0 03/17/20 24 10:39 AM EDT documented as of this encounter Care Teams Power House Control Room Operator Relationship Specialty Start Date End Date Name, MD Zeb [address] [place] [address] PCP - General Family Medicine 02/12/16 Jenna Webber PharmD [address] [place] [address] Pharmacist Internal Medicine 01/22/23 documented as of this encounter
--- OUTSIDE RECORDS SUMMARY | 2025-10-04 16:34 | XMS_ITS | Encounter Summary ---
Author Organization [employer] Address [address] [place] [address] 7 [place] [address] Care Team Providers Care Radiographer Cardiac Catheterization Name Role Phone Name, Zeb JOSHUA Primary Care Provider [phone] Jenna Webber PharmD Unavailable Encounter Details Date Type Department Care Team (Late Contact Info) Description 04/15/2023 [facility] [employer] Management [address] [place] [address] Name, MD Zeb [address] [place] [address] Social History Tobacco Use Types Packs/Day Years [...] Description 10/16/2025 1:30 PM EST Medication Management [facility] [address] [place] [address] JordiniaDarielasa, PharmD [address] [place] [address] 01/10/2026 1:00 PM EST Office Visit [facility] [address] [place] [address] Rebekah Kwon, OD [address] [place] [address] documented as of this encounter Goals Goal Patient Goal Type Associated Problems Recent Progress Patient-Stated? Author Hemoglobin A1c < 7 Result Component 9.7( 5 10:22 AM EDT) No Jenna Webber, PharmD Record your blood sugar as directed Result Component No Jenna Webber, PharmD Note: Use CGM, ensuring sensor is scanned at least once every 8 hours to capture 24H data. Check BG manually, as directed. documented as of this encounter Visit Diagnoses Not on filedocumented in this encounter Care Teams Radiographer Cardiac Catheterization Relationship Specialty Start Date End Date Name, MD Zeb [address] [place] [address] PCP - General Family Medicine 02/12/16 Jenna Webber, PharmD [address] [place] [address] Pharmacist Internal Medicine 01/22/23 documented as of this encounter
--- OUTSIDE RECORDS SUMMARY | 2025-10-04 16:34 | XMS_ITS | Data Portability ---
Author Organization [employer], [facility] [employer] [facility] Address [address] [place] [id number] Care Team Providers Care Hand Edger Name Role Phone HIM CCA OTHER Unavailable OTHER Assessment Encounter Date Assessment Date Assessment LastModified by Organization Details LastModified Time 06/05/2024 06/05/2024 As noted, we were called to see this patient regarding concerns of RLQ abd pain since yesterday morning. 64 yo F with noted pmhx (DM, elevated cholesterol) p/w right low back pain, described as intermittent, sharp pain, radiating to right low back and worsened with movement (bending forward/backwar d, twisting). No n/v/d. No black or bloody stools. No bowel habit changes. No urinary sxs. No hematuria. No anorexia. Eating and drinking normally. No cp or sob. No pleurisy. No leg edema She used tylenol 1g at 11a without any change No prior abd surgeries. No h/o kidney stones On medic exam in nad; low grade tachycardia noted; she is able to ambulate; no midline ctls or paraspinal point tenderness; lungs clear; rrr; abd +nabs, soft, nd, nt, no appreciable hernia or masses; no cva tenderness; no rashes on abdominal wall or low back region Evaluation in the field was performed by my imaging technician colleague, as noted above, I provided real-time direction and supervision for this visit. Impression & Plan: Nonspecific intermittent RLQ abd pain and low back pain DDx includes renal colic, appendicitis, colitis, diverticulitis, hernia, MSK etiology, ovarian dz Lower clinical suspicion for appendicitis, colitis, diverticulitis, hernia based on hx and exam at this time. She is post menopausal Udip neg for heme H/O DM. +glucose POC BMP and h/h reviewed EKG reviewed--no ischemic changes Patient without any tenderness at this time. She was given 1L LR and ketorolac and sxs improved and repeat HR 100. She is afebrile. We had a discussion and reviewed red flag s/s to go immediately to an ED for imaging including increasing pain, vomiting, fever, hematuria, bowel habit changes Disposition: We discussed the diagnostic uncertainty of home visits and the risk associated with this. In this case, the patient and I felt this to be an acceptable and reasonable amount of risk given the benefit of avoiding an ED visit. We discussed the need to seek care urgently/emerge ntly in the setting of any new or worsening serious symptoms, particularly fevers, chills, worsening pain, vomiting, bowel habit changes, bloody urine, loss of appetite, other acute concerns [email or web address] Not available 06/05/2024 18:46:52 10/25/2024 10/25/2024 Patient seen for report of several episodes of vomiting. Reports symptoms appear to be improving and has not been able to tolerate some fluids today also reporting dull nonacute low intensity headache. AVSS, afebrile and well-appearing per report with no neck pain or stiffness. No focal neurologic deficits per report. As symptoms seem to be improving opted to continue watchful waiting at home and offered/patient accepted Zofran ODT and patient advised to continue p.o. fluid intake. Red flags that should prompt ED presentation including worsening headache, neck pain, persistent fevers, abdominal pain persistent nausea and vomiting discussed and patient voiced understanding. pallfather Not available 10/26/2024 18:04:57 Plan of Treatment Reminders Order Date Submit Date Provider Last Modified By Organization Details Last Modified Time Details Appointments None recorded. Lab urinalysi s, dipstick [address], [id number] 4 08:12:02 BMP, serum or plasma [address], [phone] 4 08:12:17 hemoglobi n + hematocri t, blood [address], [address] 4 08:12:41 Referral None recorded. Procedures None recorded. Surgeries None recorded. Imaging electroca rdiogram [email or web address] [place] [address], [address] [place] [address], [phone] 4 13:50:30 Medication Orders ondansetr on 4 mg disintegr ating tablet 2023 024 pallfather Not available 18:05:17 lactated Ringers intraveno us solution 2023 024 [email or web address] Not available 17:17:44 ketorolac 30 mg/mL injection solution 2023 [email or web address] Not available 17:17:44 Patient TargetsNo targets recorded. Patient InstructionsNo instructions recorded. Reason for Referral None Reported. Results Created Date Observation Date Name Description Value Unit Range Abnormal Flag Note LastModifiedBy Organization Detail LastModifiedTime 06/05/20 24 06/06/2024 elect raji avilagr am No observ ation record ed. [email or web address] [address], [phone] 06/06/2024 08:12:58 Result Notes None recorded. Medical Equipment None Reported. Allergies Allergen ID Allergen Name Allergen Category Reaction Reaction Severity Criticality Documentation Date Start Date Code Code System Note Provider Name and Address Organization Details Recorded Time 92227 bacitraci n medicatio n Not available Not available Not available 10/25/2024 1291 RxNorm Not Available [facility] - production 4 12:20:08 94495 nitrofura ntoin medicatio n Not available Not available Not available 10/25/2024 7454 RxNorm Not Available [facility] - production 4 12:20:08 67537 naproxen sodium medicatio n Not available Not available Not available 10/25/2024 89520 2 RxNorm Not Available [facility] - production 4 12:20:08 8686 Product containin g penicilli n (product) medicatio n Not available Not available Not available 09/19/2024 32639 8001 SNOMED Not Available [facility] - production 4 03:46:02 Medications Name Sig Start Date Stop Date Status Note LastModified by Organization Details LastModified Time atorvastatin 20 mg tablet TAKE 1 TABLET BY MOUTH EVERY DAY IN THE MORNING active Not Available Not Available No t Available lorazepam 0.5 mg tablet PLEASE SEE ATTACHED FOR DETAILED DIRECTIONS active Not Available Not Available N ot Available metformin 1,000 mg tablet TAKE 1 TABLET BY MOUTH TWICE A DAY WITH BREAKFAST AND DINNER active Not Available Not Available N ot Available glimepiride 4 mg tablet TAKE 1 TABLET BY MOUTH EVERY 12 HOURS active Not Available Not Available No t Available zolpidem 10 mg tablet TAKE 1 TABLET BY MOUTH EVERYDAY AT BEDTIME active Not Available Not Available No t Available paroxetine 40 mg tablet TAKE 1 TABLET BY MOUTH EVERY DAY IN THE MORNING active Not Available Not Available No t Available risperidone 1 mg tablet TAKE ONE AND ONE HALF (1.5) TABLETS BY MOUTH TWICE A DAY active Not Available Not Available No t Available Novolog FlexPen U-100 Insulin aspart 100 unit/mL (3 mL) subcutaneous INJECT 10 UNITS SUBCUTANEOU SLY 3 TIMES PER DAY WITH MEALS active Not Available Not Available N ot Available Lantus Solostar U-100 Insulin 100 unit/mL (3 mL) subcutaneous pen INJECT 30 UNITS UNDER THE SKIN EVERY DAY AT BEDTIME active Not Available Not Available N ot Available ketorolac 30 mg/mL injection solution Inject 15 mg. 2023 active Not Available Not Available Not Avai lable Tresiba FlexTouch U-200 insulin 200 unit/mL (3 mL) subcutaneous pen INJECT 30 UNITS SUBCUTANEOU SLY AT BEDTIME active Not Available Not Available No t Available FreeStyle Precision Sha Strips USE TO TEST BLOOD SUGAR TWICE DAILY active Not Available Not Available Not Available BD Elvia 2nd Gen Pen Needle 32 gauge x 5/32 USE TO INJECT INSULIN 4 TIMES DAILY active Not Available Not Available Not Available OneTouch Ultra2 Meter USE TO TEST BLOOD SUGAR TWICE A DAY active Not Available Not Available Not Available OneTouch Delica Plus Lancet 33 gauge USE TO TEST BLOOD SUGAR TWICE A DAY active Not Available Not Available Not Available Rybelsus 14 mg tablet PLEASE SEE ATTACHED FOR DETAILED DIRECTIONS active Not Available Not Available N ot Available Rybelsus 3 mg tablet TAKE 1 TABLET BY MOUTH ONCE DAILY 30 MINUTES BEFORE FOOD, DRINK, OR OTHER MEDICATIONS . TAKE WITH NO MORE THAN 4 OUNCES WATER. active Not Available Not Available No t Available FreeStyle Amanda 2 Sensor kit APPLY 1 sensor EVERY 14 DAYS active Not Available Not Available No t Available FreeStyle Amanda 2 Mozelle SCAN sensor EVERY 8 HOURS active Not Available Not Available No t Available Vitals Date Recorded Body weight Body temperature Respiratory rate Heart rate Oxygen saturation Oxygen saturation in Arterial blood by Pulse oximetry Body height Systolic And Diastolic Provider Name and Address Organization Details Last Updated DateTime 4 76703.9 6 g 98.7 [degF] 18 /min 106 /min 98 % 98 % 162.56 cm 110/76 mm[Hg] Not Available [facility] 4 16:07:51 Date Recorded Heart rate Oxygen saturation Oxygen saturation in Arterial blood by Pulse oximetry Respiratory rate Body temperature Systolic And Diastolic Provider Name and Address Organization Details Last Updated DateTime 4 92 /min 98 % 98 % 16 /min 98.8 [degF] 132/76 mm[Hg] Not Available [facility] 4 18:13:34 Social History None recorded. Functional Status None recorded. Mental Status None recorded. Family History Nothing Reported. Medical History No medical history recorded. Gynecological HistoryNo gynecological history recorded. Obstetrics History GPAL:G 0 P 0 0 0 0 Past Encounters Encounter ID Performer Location Encounter Start Date Encounter Closed Date Diagnosis/Indication Diagnosis SNOMED-CT Code Diagnosis ICD10 Code Diagnosis IMO Codes Diagnosis Note [id number] ZULEIKA PERRY MD [facility] [address] [place] [phone] 06/05/2024 15:43:15 06/05/2024 20:56:44 Abdominal pain 79260846 R10.9 [id number] Navdeep Cao MD [facility] - [facility] [address] [place] [phone] 10/25/2024 18:13:31 10/26/2024 21:50:07 Nausea and vomiting 75614063 R11.2 Health Concerns Section Related Observation LastModified by Organization Detai ls LastModified Time None Recorded Concern Status LastModified by Organization Details LastModified Time None Recorded Advance Directives Directive None Recorded Payers Insurance Date Sequence Insurance Name Policy Number Policy Guevara Covered Member ID Guevara Member ID Guarantor Name 10/26/2024 1 [facility] - DOS ON OR AFTER 2023 - DUAL ELIGIBLE - COR[employer]CTION OPTIONS AND ONE CARE (MEDICARE REPLACEMENT/AD VANTAGE - HMO) Triny Loi [id number] Triny Monsivais Notes Date Note Type Note Provider Name and Address Organization Details Recorded Time 06/05/2024 text/html ROS as noted in the HPI HPI: Call returned to Triny Monsivais to triage below. Spoke with Daughter Tristan who is on last signed HIPAA. Reports having left lower quadrant pain x today. Per daughter pain is constant. No N/V or diarrhea. No urinary sx. No fever. Daughter advised of need for eval today. Unable to come into [facility]. Agrees to [facility] for home evaluation. ................... ................... ................... ................... ................... ................... ................... ........ CRC Nurse Triage Notes (Cheryl Gabriel): Comments: CRC RN DID NOT NEED FURTHER INFO Refining Supervisor POC Test Results from Vivi Orantes EKG (1) [17:06] EKG test performed. Attachments uploaded as part of this test result can be found under Documents section. iSTAT Chem8+ (1) [17:06] Na: 140 mEq/L K: 4.2 mEq/L Cl: 105 mEq/L iCa: 1.24 mmol/L TCO2: 25 mmol/L Glu: 225 mg/dL BUN: 13 mg/dL Crea: 0.7 mg/dL Hct: 36 % Hb: 12.2 g/dL A Attachments uploaded as part of this test result can be found under Documents section. Urine Dipstick (1) [17:06] Urine leukocytes: - LAILA Urine nitrites: - NIT Urine urobilinogen: 0.2 URO Urine protein: 15 PRO Urine pH: 5.0 pH Urine blood: - BLO Urine specific gravity: 1.015 SG Urine ketones: - KET Urine bilirubin: - JANESSA Urine glucose: 500 GLU Attachments uploaded as part of this test result can be found under Documents section. ................... ................... ................... ................... ................... ................... ................... ........ Refining Supervisor Note From Vivi Orantes: Sent to a call for a pt complaining of abd pain. SC8 arrives on scene, pt is alert and oriented, airway is patent. Pt complains of RLQ abd pain described as intermittent, sharp, radiating to right lower back, and worsening with movement. Movement described as leaning forward/backward, and twisting trunk from side to side. Pt denies worsening abd pain or back pain with palpation, standing, or ambulating. Pt denies ahn, dizziness, cp, sob, n/v/d, dysuria, hematuria, constipation, black/bloody stool, fever, or loc. Pt states she has been eating/drinking normally, and her last BM was today. Pt states she took Tylenol 1gm PO at approx 11am today with no relief. BP:110/76, P:106, RR:18, SpO2:98% RA, T:98.7; Head: unremarkable; Lung sounds: clear bilaterally; Abdomen: soft, non-tender, no distention, no hernias or masses appreciated; Back: no tenderness, or CVA tenderness noted; Extremities: unremarkable; Skin: pink, warm, dry, no rashes noted; 12 lead [facility] consulted and orders urine dip and POC labs. Repeat P:108; Urine sample obtained; urine dip results uploaded to [employer]. Venous blood draw performed: Istat Chem8+ [facility]. Repeat P:104; [facility] consulted and orders Lactated Ringer's 1 liter IV and Toradol 15mg IV. IV access initiated; Lactated Ringer's 1 liter IV and Toradol 15mg IV administered. Pt reports decreased pain. P:100; Red flags discussed. Pt advised to follow up with PCP. Pt has no further questions. ................... ................... ................... ................... ................... ................... ................... ........ Disposition: Fulfilled ZULEIKA PERRY MD [address] [facility],[address], [place], [phone], [employer] 06/05/2024 18:47:04 10/25/2024 text/html HPI: Call returned to Triny Monsivais to triage below. Reports having vomiting since yesterday. Pt has had 4 episodes. No green bile, blood or coffee ground emesis. Pt having headache. Having BS of 150mg/dL just now. No BP kit at home. Mild AHN. No diarrhea. No Cough, congestion or ST. Pt unable to come to our walk in center. Agrees to [employer] for evaluation. Confirmed demographics and allergies. ................... ................... ................... ................... ................... ................... ................... ........ [facility] Nurse Triage Notes (Dyan Machado): Chief Complaints: Vomiting PMH: COPD/Asthma, Diabetes Mellitus Type 2, Asthma, Schizophrenia Comments: HPI reviewed- [place] ................... ................... ................... ................... ................... ................... ................... ........ Refining Supervisor Note From Giovanni Easton: Dispatched to the call address for the female with vomiting. Pt states she had a few episodes of vomiting yesterday and a couple today. She denies the vomit being black or bloody an advises it is yellowish. Pt denies CP, diff breathing/SoB, abd pain, fevers, cough or any other symptoms. Pt does complain of of a moderate headache but has not taken any pain relievers. Pt has had diminished appetite but has been able to drink some fluids.Pt was found opening the door, CAOx4, airway open and patent, breathing non labored, able to speak in full sentences, -JVD, -HEENT, skin PWD with good turgor, mucous membranes pink and moist, abd soft non tender/distended, pupils PERRL, -edema, +CMSx4. [facility] consulted. Pt given 4mg Zofran ODT. Red flags discussed. ALL times are approx. ................... ................... ................... ................... ................... ................... ................... ........ [facility] Consulted: Navdeep Cao ................... ................... ................... ................... ................... ................... ................... ........ Disposition: Fulfilled Navdeep Cao MD [address] [place] [address],[address] [facility], [place], [phone], [employer] 10/26/2024 18:05:27 OBGyn Episode No OBEpisode recorded.
--- OUTSIDE RECORDS SUMMARY | 2025-10-04 16:34 | XMS_ITS | Clinical Summary ---
Author Organization [facility] Address [address] [place] [address] Phone Care Team Providers Care Bolter Helper Name Role Phone Name, Zeb JOSHUA Primary Care Provider [phone] Allergies No known active allergies Encounters Date Type Department Care Team Description 08/14/2025 12:47 AM EDT - 08/14/2025 5:[address] [facility] Emergency [address] [place] [address] Chris Patel MD Kokkinos, Erika, MD Insulin overdose, accidental or unintentional, initial encounter (Primary Dx); Hyperglycemia Discharge Disposition: Home or Self Care from Last 3 Months Surgical History Surgery Date Site/Laterality Comments OTHER SURGICAL HISTORY PROCEDURE: PA RESCJ PRIM PRTL MAL W/BSO & OMNTC RAD DEBULKING; COMMENT: benign on the right side COLONOSCOPY 07/22/2010 PROCEDURE: PA COLONOSCOPY STOMA DX INCLUDING COLLJ SPEC SPX; [...] Sign Reading Time Taken Comments Blood Pressure 131/72 08/14/2025 4:45 AM EDT Pulse 99 08/14/2025 4:45 AM EDT Temperature 36.4 C (97.6 F) 08/14/2025 4:45 AM EDT Respiratory Rate 18 08/14/2025 4:45 AM EDT Oxygen Saturation 97% 08/14/2025 4:45 AM EDT Inhaled Oxygen Concentration - - Weight 63.5 kg (140 lb) 08/14/2025 2:18 AM EDT Height 162.6 cm (5' 4 ) 08/14/2025 2:18 AM EDT Body Mass Index 24.03 08/14/2025 2:18 AM EDT Plan of Treatment Health Maintenance Due Date Last Done Comments Breast Cancer Screening 1960 Colorectal Cancer Screening: Colonoscopy 1960 Diabetes: Annual Foot Exam 01/25/1970 Diabetes: Annual Retina Eye Exam 01/25/1970 Cervical Cancer Screening: Pap Smear 01/25/1981 Hepatitis C Screening 10/25/2022 Osteoporosis Screening (Bone Density Screening) 10/25/2022 Social Influencers of Health Screening 10/25/2022 Diabetes: Annual Urine Albumin-Creatinine Ratio (uACR) 11/06/2022 Depression Screening 11/22/2024 Falls Risk Assessment 01/25/2025 COVID-19 Vaccine ( season) 2025 Influenza Vaccine (#1) 2025 9, 08/19/2018, 09/07/2017, Additional history exists Diabetes: Blood Sugar Control Test (HGBA1C) 12/07/2025 06/06/2025, 09/19/2024 Diabetes: Annual GFR (Glomerular Filtration Rate) 08/14/2026 08/14/2025, 08/03/2025, 12/18/2024 Cholesterol Screening (Lipid Panel) 08/03/2030 08/03/2025, 03/03/2024 DTaP,Tdap,and Td Vaccines (3 - Td [...] Procedure Name Priority Date/Time Associated Diagnosis Comments POCT GLUCOSE BLOOD Routine 08/14/2025 4: 42 AM EDT URINALYSIS WITH REFLEX MICROSCOPIC STAT 08/14/2025 3:58 AM EDT URINALYSIS WITH REFLEX MICROSCOPIC STAT 08/14/2025 3:58 AM EDT POCT GLUCOSE BLOOD Routine 08/14/2025 3: 52 AM EDT VENOUS BLOOD GAS STAT 08/14/2025 2:11 AM EDT ECG 12-LEAD STAT 08/14/2025 1:19 AM EDT POC GLUCOSE STAT 08/14/2025 1:09 AM EDT TROPONIN I HIGH SENSITIVITY STAT 08/14/2025 1:08 AM EDT CBC WITH AUTO DIFFERENTIAL STAT 08/14/2025 1:00 AM EDT BETA HYDROXYBUTYRATE STAT 08/14/2025 1:00 AM EDT MAGNESIUM STAT 08/14/2025 1:00 AM EDT LIPASE STAT 08/14/2025 1:00 AM EDT COMPREHENSIVE METABOLIC PANEL STAT 08/14/2025 1:00 AM EDT CBC AND DIFFERENTIAL STAT 08/14/2025 1:00 AM EDT POCT GLUCOSE BLOOD Routine 08/14/2025 12 :58 AM EDT ECG ANNOTATED 08/14/2025 from Last 3 Months Results * (ABNORMAL) POCT Glucose, blood (08/14/2025 4:42 AM EDT) Only the most recent of3 resultswithin the time period is included. [facility] Glucose POCT 201(H) 70 - 100 mg/dL 08/14/2025 4:58 AM EDT [facility] Blood Capillary blood specimen / Unknown 08/14/2025 4:42 AM EDT 08/14/2025 4:59 AM EDT us Lizbeth Andrade MD LAB POINT OF CARE TE ST DOCKED DEVICE UNSOLICITED RESULTS Final Result [facility] [address] [place] [address], * (ABNORMAL) Urinalysis with reflex microscopic (08/14/2025 3:58 AM EDT) [facility] Specific [place] Urine 1.009 1.003 - 1.030 LAB URINALYSIS - AUTOMATED METHOD 08/14/2025 4:13 AM EDT [facility] pH, Urine 6.0 5.0 - 8.0 pH LAB URINALYSIS - AUTOMATED METHOD 08/14/2025 4:13 AM [facility] Leukocytes, Urine Negative Negative LAB URINALYSIS - AUTOMATED METHOD 08/14/2025 4:13 AM [facility] Nitrite, Urine Negative Negative LAB URINALYSIS - AUTOMATED METHOD 08/14/2025 4:13 AM [facility] Protein, Urine Negative <=Trace mg/dL LAB URINALYSIS - AUTOMATED METHOD 08/14/2025 4:13 AM [facility] Glucose, Urine 500(A) Negative mg/dL LAB URINALYSIS - AUTOMATED METHOD 08/14/2025 4:13 AM [facility] Ketones, Urine Negative Negative mg/dL LAB URINALYSIS - AUTOMATED METHOD 08/14/2025 4:13 AM [facility] Urobilinogen, Urine 0.2 0.2 - 1.0 mg/dL LAB URINALYSIS - AUTOMATED METHOD 08/14/2025 4:13 AM [facility] Bilirubin, Urine Negative Negative LAB URINALYSIS - AUTOMATED METHOD 08/14/2025 4:13 AM [facility] Blood, Urine Negative Negative LAB URINALYSIS - AUTOMATED METHOD 08/14/2025 4:13 AM [facility] Urine Urine specimen obtained by clean catch procedure / Unknown Non-blood Collection / Unknown 08/14/2025 3:58 AM EDT 08/14/2025 4:04 AM EDT us Chris Patel MD LAB URINE ORDERABLES Final R esult [facility] [address] [place] [address], * Venous blood gas (08/14/2025 2:11 AM EDT) pH, Jude 7.37 7.32 - 7.42 pH 08/14/2025 2:18 AM [facility] pCO2, Jude 48 41 - 51 mmHg 08/14/2025 2:18 AM EDT [facility] pO2, Jude 34 25 - 40 mmHg 08/14/2025 2:18 AM EDT [facility] HCO3, Venous 25.6 22.0 - 26.0 mmol/L 08/14/2025 2:18 AM EDT [facility] O2 Sat, Jude 59.7 % 08/14/2025 2:18 AM EDT [facility] Base Excess, Jude 1.9 -2.0 - 2.0 mmol/L 08/14/2025 2:18 AM EDT [facility] Blood Venous blood specimen / Unknown Venipuncture / Unknown 08/14/2025 2:11 AM EDT 08/14/2025 2:14 AM EDT us Chris Patel MD LAB BLOOD ORDERABLES Final R esult [facility] [address] [place] [address], [place] [phone] * 12-Lead ECG (08/14/2025 1:19 AM EDT) Ventricular Rate ECG 100 BPM GEMUSE Atrial Rate 100 BPM GEMUSE P-R Interval 184 ms GEMUSE QRS Duration 72 ms GEMUSE Q-T Interval 338 ms GEMUSE QTc 436 ms GEMUSE P Wave Kennan 45 degrees GEMUSE R Kennan 66 degrees GEMUSE T Kennan 53 degrees GEMUSE ECG Interpretation Normal sinus rhythm Normal ECG When compared with ECG of 19-DEC-2024 00:02, No significant change was found Confirmed by ANISA ARIAS ([id number]) on 08/15/2025 9:54:48 PM GEMUSE 08/14/2025 1:19 AM EDT 08/15/2025 9:54 PM EDT us Chris Patel MD ECG ORDERABLES Final Result GEM[facility] * (ABNORMAL) POC glucose manually resulted (08/14/2025 1:09 AM EDT) Blood Capillary blood specimen / Unknown 08/14/2025 1:09 AM EDT Chris Patel MD POINT OF CARE TEST ENTER/CARRIE T ORDERABLES Final Result * Troponin I High Sensitivity (08/14/2025 1:08 AM EDT) [facility] High Sensitivity Troponin I 4 <=54 ng/L LAB CHEMISTRY METHOD 08/14/2025 2:14 AM EDT [facility] Blood Venous blood specimen / Unknown Venipuncture / Unknown 08/14/2025 1:08 AM EDT 08/14/2025 1:49 AM EDT Narrative [facility] - 08/14/2025 2:14 AM EDT High levels of biotin in samples may falsely decrease hsTroponin values. Use caution when interpreting hsTroponin results in patients taking biotin who exhibit renal impairment (eGFR <60) or in patients taking more than 20 mg/day of biotin. Chris Patel MD LAB BLOOD ORDERABLES Final R esult Performing Organization Address City/[facility]/ZIP Co de Phone Number [facility] [address] [place] [address], * Beta hydroxybutyrate (08/14/2025 1:00 AM EDT) [facility] Beta-Hydroxybu tyrate 1.0 0.2 - 2.8 mg/dL LAB CHEMISTRY METHOD 08/14/2025 2:26 AM EDT [facility] Blood Venous blood specimen / Unknown Venipuncture / Unknown 08/14/2025 1:00 AM EDT 08/14/2025 1:49 AM EDT us Chris Patel MD LAB BLOOD ORDERABLES Final R esult [facility] [address] [place] [address], * (ABNORMAL) CBC auto differential (08/14/2025 1:00 AM EDT) WBC 8.2 4.8 - 10.8 K/mcL LAB HEMETOLOGY METHOD 08/14/2025 1:54 AM EDT [facility] RBC 3.80 3.80 - 4.80 M/mcL LAB HEMETOLOGY METHOD 08/14/2025 1:54 AM EDT [facility] Hemoglobin 10.7(L) 11.5 - 16.0 g/dL LAB HEMETOLOGY METHOD 08/14/2025 1:54 AM EDT [facility] Hematocrit 32.6(L) 35.0 - 47.0 % LAB HEMETOLOGY METHOD 08/14/2025 1:54 AM EDT [facility] MCV 86.5 79.0 - 98.0 FL LAB HEMETOLOGY METHOD 08/14/2025 1:54 AM EDT [facility] MCH 28.4 27.0 - 32.0 pcg LAB HEMETOLOGY METHOD 08/14/2025 1:54 AM EDT [facility] MCHC 32.8 32.0 - 37.0 g/dL LAB HEMETOLOGY METHOD 08/14/2025 1:54 AM EDT [facility] RDW 13.0 11.0 - 15.0 % LAB HEMETOLOGY METHOD 08/14/2025 1:54 AM EDT [facility] Platelets 297 130 - 400 K/mcL LAB HEMETOLOGY METHOD 08/14/2025 1:54 AM EDT [facility] MPV 11.1(H) 7.0 - 11.0 FL LAB HEMETOLOGY METHOD 08/14/2025 1:54 AM [facility] NRBC 0.0 <1.0 % LAB HEMETOLOGY METHOD 08/14/2025 1:54 AM [facility] NRBC Absolute 0.00 <0.10 K/mcL LAB HEMETOLOGY METHOD 08/14/2025 1:54 AM [facility] Neutrophils Relative 42.5 % LAB HEMETOLOGY METHOD 08/14/2025 1:54 AM [facility] Lymphocytes Relative 45.6 % LAB HEMETOLOGY METHOD 08/14/2025 1:54 AM [facility] Monocytes Relative 9.6 % LAB HEMETOLOGY METHOD 08/14/2025 1:54 AM [facility] Eosinophils Relative 1.6 % LAB HEMETOLOGY METHOD 08/14/2025 1:54 AM [facility] Basophils Relative 0.6 % LAB HEMETOLOGY METHOD 08/14/2025 1:54 AM [facility] Immature Granulocytes Relative 0.1 % LAB HEMETOLOGY METHOD 08/14/2025 1:54 AM [facility] Neutrophils Absolute 3.50 1.50 - 7.00 K/mcL LAB HEMETOLOGY METHOD 08/14/2025 1:54 AM [facility] Lymphocytes Absolute 3.76 1.00 - 5.00 K/mcL LAB HEMETOLOGY METHOD 08/14/2025 1:54 AM [facility] Monocytes Absolute 0.79 0.20 - 1.00 K/mcL LAB HEMETOLOGY METHOD 08/14/2025 1:54 AM [facility] Eosinophils Absolute 0.13 0.00 - 0.50 K/mcL LAB HEMETOLOGY METHOD 08/14/2025 1:54 AM [facility] Basophils Absolute 0.05 0.00 - 0.20 K/[facility] LAB HEMETOLOGY METHOD 08/14/2025 1:54 AM EDT [facility] Immature Granulocytes Absolute 0.01 0.00 - 0.03 K/[facility] HEMETOLOGY METHOD 08/14/2025 1:54 AM EDT [facility] Blood Venous blood specimen / Unknown Venipuncture / Unknown 08/14/2025 1:00 AM EDT 08/14/2025 1:49 AM EDT Chris Patel MD LAB BLOOD ORDERABLES Final R esult [facility] [address] [place] [address], [place] [phone] * Magnesium (08/14/2025 1:00 AM EDT) Magnesium 1.9 1.9 - 2.6 mg/dL LAB CHEMISTRY METHOD 08/14/2025 2:26 AM EDT [facility] Blood Venous blood specimen / Unknown Venipuncture / Unknown 08/14/2025 1:00 AM EDT 08/14/2025 1:49 AM EDT Chris Patel MD LAB BLOOD ORDERABLES Final R esult [facility] [address] [place] [address], [place] [phone] * Lipase (08/14/2025 1:00 AM EDT) Lipase 35 13 - 75 unit/L LAB CHEMISTRY METHOD 08/14/2025 2:26 AM EDT [facility] Blood Venous blood specimen / Unknown Venipuncture / Unknown 08/14/2025 1:00 AM EDT 08/14/2025 1:49 AM EDT us Chris Patel MD LAB BLOOD ORDERABLES Final R esult [facility] [address] [place] [address], * (ABNORMAL) Comprehensive metabolic panel (08/14/2025 1:00 AM EDT) Sodium 132(L) 133 - 145 mmol/L LAB CHEMISTRY METHOD 08/14/2025 2:33 AM [facility] Potassium 4.5 3.5 - 5.5 mmol/L LAB CHEMISTRY METHOD 08/14/2025 2:33 AM [facility] Chloride 101 96 - 110 mmol/L LAB CHEMISTRY METHOD 08/14/2025 2:33 AM [facility] CO2 27 21 - 32 mmol/L LAB CHEMISTRY METHOD 08/14/2025 2:33 AM [facility] Anion Gap 4 3 - 11 LAB CHEMISTRY METHOD 08/14/2025 2:33 AM [facility] Glucose 333(H) 70 - 100 mg/dL LAB CHEMISTRY METHOD 08/14/2025 2:33 AM [facility] BUN 21 5 - 25 mg/dL LAB CHEMISTRY METHOD 08/14/2025 2:33 AM [facility] Creatinine 0.85 0.50 - 1.10 mg/dL LAB CHEMISTRY METHOD 08/14/2025 2:33 AM [facility] eGFR 76 >=60 mL/min/1. 73m2 LAB CHEMISTRY METHOD 08/14/2025 2:33 AM [facility] Comment:Calculation based on the Chronic Kidney Disease Epidemiology Collaboration (CKD-EPI) equation refit without adjustment for race. BUN/Creatinine Ratio 24.7 LAB CHEMISTRY METHOD 08/14/2025 2:33 AM [facility] Calcium 9.6 8.5 - 10.5 mg/dL LAB CHEMISTRY METHOD 08/14/2025 2:33 AM EDT [facility] AST (SGOT) 13 10 - 42 unit/L LAB CHEMISTRY METHOD 08/14/2025 2:33 AM T [facility] ALT (SGPT) 18 10 - 60 unit/L LAB CHEMISTRY METHOD 08/14/2025 2:33 AM T [facility] Alkaline Phosphatase 88 42 - 121 unit/L LAB CHEMISTRY METHOD 08/14/2025 2:33 AM EDT [facility] Total Protein 7.3 6.0 - 8.0 g/dL LAB CHEMISTRY METHOD 08/14/2025 2:33 AM [facility] Albumin 3.7 3.2 - 5.0 g/dL LAB CHEMISTRY METHOD 08/14/2025 2:33 AM [facility] Total Bilirubin 0.2 0.0 - 1.4 mg/dL LAB CHEMISTRY METHOD 08/14/2025 2:33 AM T [facility] Blood Venous blood specimen / Unknown Venipuncture / Unknown 08/14/2025 1:00 AM EDT 08/14/2025 1:49 AM EDT Chris Patel MD LAB BLOOD ORDERABLES Final R esult [facility] [address] [place] [address], * ECG-Annotated (08/14/2025) us Provider Onbase ECG ORDERABLES Final Result from Last 3 Months Insurance [facility] [employer] MEDICARE Member Subscriber Plan / Payer (Ef fective 2018-Present) Name:TRINY MONSIVAIS Relation to Subscriber:Self Name:Triny Monsivais Payer ID:[id number] Group ID:[id number] Type:Not on file Address: [address] [place] [address] Care Teams Bolter Helper Relationship Specialty Start Date End Date Name, MD Zeb [address] [place] [id number] PCP - General Internal Medicine 08/14/25
--- OUTSIDE RECORDS SUMMARY | 2025-10-04 16:34 | XMS_ITS | Encounter Summary ---
Author Organization [employer] Address [address] [facility] 7t [place] [address] Care Team Providers Care Salesperson Furs Name Role Phone Name, Zeb JOSHUA Primary Care Provider [phone] Jenna Webber PharmD Unavailable [phone] Reason for Visit * Reason Onset Date Comments Med Refill 02/11/2024 Encounter Details Date Type Department Care Team (Late st Contact Info) Description 02/11/2024 Telephone [facility] [address] [place], [place] [phone] Name, MD Zeb [address] [place] [address] Med Refill Social History Tobacco Use Types [...] 1:52 PM EDT Medication was sent to [facility][id number] on 12/30/23 #90 with 1 refill. * Telephone Encounter - Terence He - 02/11/2024 1:41 PM EDT TC from pt requesting medication refill. Medications needing refill : atorvastatin (Lipitor) 20 MG tablet To be sent to: [facility] #[id number] - [address] AT [address] [facility] Patients daughter states is going to leave town on 02/13 documented in this encounter Plan of Treatment Upcoming Encounters Date Type Department Care Team (Late st Contact Info) Description 10/16/2025 1:30 PM EST Medication Management [facility]INE [address] [place] [address] Jenna Webber, PharmD [address] [place] [address] 01/10/2026 1:00 PM EST Office Visit [facility] OPTOMETRY [address] [place] [address] Rebekah Kwon, OD [address] [place] [address] documented as of this encounter Goals Goal Patient Goal Type Associated Problems Recent Progress Patient-Stated? Author Hemoglobin A1c < 7 Result Component 9.7( 5 10:22 AM EDT) No Jenna Webber PharmD Record your blood sugar as directed Result Component No Jenna Webber PharmD Note: Use CGM, ensuring sensor is scanned at least once every 8 hours to capture 24H data. Check BG manually, as directed. documented as of this encounter Visit Diagnoses Not on filedocumented in this encounter Care Teams Salesperson Furs Relationship Specialty Start Date End Date Name, MD Zeb [address] [place] [address] PCP - General Family Medicine 02/12/16 Jenna Webber PharmD [address] [place] [address] Pharmacist Internal Medicine 01/22/23 documented as of this encounter
--- OUTSIDE RECORDS SUMMARY | 2025-10-04 16:34 | XMS_ITS | Encounter Summary ---
Author Organization [employer] Address [address] [facility] 7t [place] [address] Care Team Providers Care Floral Assistant Name Role Phone Name, Zeb JOSHUA Primary Care Provider [phone] Jenna Webber PharmD Unavailable [phone] Reason for Visit * Reason Onset Date Comments Nurse Triage 06/05/2024 Encounter Details Date Type Department Care Team ([facility] st Contact Info) Description 06/05/2024 Telephone [facility] MEDICINE [address] [place], [place] [phone] Name, MD Zeb [address] [place] [address] Nurse Triage Social History Tobacco Use Types [...] AM EDT [facility] gave [facility] IVF and Torodol 15mg IV with improvement of symptoms[facility] with [...] for eval today. [facility] to [facility]. [facility] [...] acuity questions The caller accepted this outcome [place] speaker documented in this encounter Plan of Treatment Upcoming Encounters Date Type Department Care Team (Late st Contact Info) Description 10/16/2025 1:30 PM EST Medication Management [facility] MEDICINE [address] [place] [address] Jenna Webber, PharmD [address] [place] [address] 01/10/2026 1:00 PM EST Office Visit [facility] OPTOMETRY [address] [place] [address] Doyle, Rebekah, OD [address] [place] [address] documented as of this encounter Goals Goal Patient Goal Type Associated Problems Recent Progress Patient-Stated? Author Hemoglobin A1c < 7 Result Component 9.7( 10:22 AM EDT) No Puia, Jenna, PharmD Record [...] documented as of this encounter Care Teams Floral Assistant Relationship Specialty Start Date End Date Name, MD Zeb [address] [place] [address] PCP - General Family Medicine 02/12/16 Jenna Webber, PharmD [address] [place] [address] Pharmacist Internal Medicine 01/22/23 documented as of this encounter
--- OUTSIDE RECORDS SUMMARY | 2025-10-04 16:34 | XMS_ITS | Encounter Summary ---
Author Organization [employer] Address [address] [facility] [address] [place] [address] Care Team Providers Care Block And Case Maker Name Role Phone Name, Zeb JOSHUA Primary Care Provider [phone] Jenna Webber PharmD Unavailable Encounter Details Date Type Department Care Team (Late st Contact Info) Description 04/26/2023 Abstract [facility] MEDICINE [address] [place] [address] Name, MD Zeb [address] [place] [address] Social History Tobacco Use Types Packs/Day Years [...] Description 10/16/2025 1:30 PM EST Medication Management [facility] MEDICINE [address] [place] [address] JordiniaDarielasa, PharmD [address] [place] [address] 01/10/2026 1:00 PM EST Office Visit [facility] OPTOMETRY [address] [place] [address], [place] [address] Rebekah Kwon, OD [address] [place] [address] documented as of this encounter Goals Goal [...] Hm Pap Smear (07/26/2019 12:00 AM EDT) Historical Provider [facility] Final Result documented in this encounter Visit Diagnoses Not on filedocumented in this encounter Care Teams Block And Case Maker Relationship Specialty Start Date End Date Name, MD Zeb [address] [place] [address] PCP - General Family Medicine 02/12/16 Jenna Webber PharmD [address] [place] [address] Pharmacist Internal Medicine 01/22/23 documented as of this encounter
== END 2025-10-04 13:14 | disposition home or self-care (01) ==
LOC: HO.MAMMO 13:13
PROVIDERS: PCP Internal Medicine Geriatric Medicine; Visit Provider Internal Medicine Geriatric Medicine
DX: Z12.31 Encounter for screening mammogram for malignant neoplasm of breast (principal); Z13.820 Encounter for screening for osteoporosis; Z78.0 Asymptomatic menopausal state; Z80.3 Family history of malignant neoplasm of breast
CPT/HCPCS: 77063; 77067; 77080

== ENCOUNTER → 2025-10-04 13:30 | Outpatient (BNV) | payer OTHER, SELFPAY | PROVIDERS: PCP Internal Medicine Geriatric Medicine; Visit Provider Radiology Body Imaging | DX: E28.39 Other primary ovarian failure (principal) | CPT/HCPCS: 77080 ==